=== PATIENT | male | born 1985 | race Caucasian/White ===

== ENCOUNTER 2023-03-11 20:33 | Emergency (ER) | payer MEDICAID, SELFPAY ==
--- NOTE | ~2023-03-11 | XR_ITS ---
EXAMINATION: XR FOREARM, RIGHT CLINICAL INFORMATION: Pain and swelling. Redness. COMPARISON: None available. TECHNIQUE: AP and lateral views of the right forearm were obtained. FINDINGS: Plate and screw fixation hardware of the mid to distal ulnar diaphysis. No acute fracture or cortical disruption. Appropriate alignment of the elbow and wrist. No elbow joint effusion. Mild soft tissue swelling at the dorsal aspect of the mid forearm. XR/XR forearm RT 2V IMPRESSION: Mild soft tissue swelling at the dorsal aspect of the mid forearm. No acute osseous abnormality.
[2023-03-11 20:47] VITALS: BP 171/118; PULSE 86; RESP 18; TEMP 36.7; O2SAT 98; BMI 21.9
--- NOTE | 2023-03-11 20:47 | ED_ITS ---
HPI - Extremity Problem General Chief complaint: Extremity Injury, Upper Stated complaint: Right forearm pain previous surgery 3 years ago Time Seen by Provider: 03/11/23 22:57 Source: patient, RN notes reviewed and old records reviewed Mode of arrival: ambulatory Limitations: no limitations History of Present Illness HPI Narrative: 37-year-old male presents for evaluation of pain to his right forearm. Patient reports a remote history approximately 4 years ago of surgery to his right arm He reports he believes this was done at [facility] Patient states at the time of surgical follow-up he was told that he could have the screws removed in the future if he desires Patient states that every few months he gets problems with his right forearm in the area of his scar He gets redness, swelling and pain to the area He states the last time this happened was 6 months ago while he was in [place] Patient reports for the last few days he has had a similar episode There are no open wounds or drainage from the area but he complains of pain, swelling to the right forearm Related Data Previous Rx's Medication Instructions Recorded cephalexin 500 mg capsule 500 mg PO QID #28 caps 03/11/23 Allergies Allergy/AdvReac Type Severity Reaction Status Date / Time No Known Allergies Allergy Unverified 04/19/20 16:35 Review of Systems Constitutional: Constitutional: Denies chills and Denies fever(s) Musculoskeletal: Comments: Pain to right forearm Integumentary/Breasts: Skin/Breast: Reports erythema PMFSH Social History Social History Advance Directives: No Advance Directives Information Provided: Yes Physical Exam Vital Signs: Vital Signs: Last Vital Signs Temp 97.9 F 03/11/23 22:51 Pulse 70 03/11/23 22:51 Resp 17 03/11/23 22:51 BP 162/96 H 03/11/23 22:51 Pulse Ox 97 03/11/23 22:51 O2 Del Method Room Air 03/11/23 22:51 BMI result Body Mass Index 21.9 Const: General: healthy appearing, comfortable, no acute distress, alert and awake Nutritional Appearance: well nourished Orientation/consciousness: patient oriented x3 Resp: Effort & Inspection: normal respiratory effort, able to speak in complete sentences and not labored Skin: Other: Patient has an approximately 6 cm area of erythema with some edema, no fluctuance or induration. The area is to the right dorsal forearm at the proximal surface of the patient's previous surgical scar. No streaking erythema General skin exam: elasticity normal Neuro: General: patient oriented x3 Cranial nerves: Yes Bilaterally intact EOM present Cognition (Neuro): normal cognition Course Course Course Narrative: RME - 37 yo male presents to the ER for evaluation of right forearm redness, pain, swelling that started 3 days ago. History of surgery on that same forearm 3 years ago and the redness is over the surgical scar. Has limited ROM due to the pain and vomited today due to the pain. NV intact distally, compartments soft and compressible - w/ area of erythema and warmth c/w cellulitis. Plan: x-ray forearm, abx Medical Decision Making Medical Decision Making MDM Narrative: 37-year-old male presents for evaluation of redness, pain and swelling to his right forearm in the area of a previous surgery. He appears to have a mild cellulitis. Patient is mildly hypertensive, otherwise vitals are stable, he is afebrile. I suspect he has a mild cellulitis. Will treat with cephalexin. I advised the patient to follow-up with his orthopedic surgeon if possible but given referral to our orthopedic team. X-ray was reviewed and does not show any obvious fracture or hardware failure Differential Diagnosis Differential Diagnoses: The differential diagnosis associated with the presentation includes Cellulitis Arthritis Chronic right arm pain Hardware failure Forearm fracture Independent Interpretation I performed an independent interpretation of an: Plain X-Ray Interpretation: Sequelae of previous surgical intervention. No obvious fracture Radiology Impression Discussion of test interpretation with radiology: I have reviewed the radiologist's reading. Radiologist Impression: Mild soft tissue swelling in the dorsal aspect of the mid forearm. No acute osseous abnormality Discharge Plan Discharge Clinical Impression: Cellulitis of forearm, right Patient Disposition: Home, Self-Care Instructions: Cellulitis (ED) Additional Instructions: Your x-ray shows normal a placement of the screws in your arm. It looks like you have a mild skin infection called cellulitis Take the cephalexin 4 times daily for the next 7 days You should try to follow with Orthopedics at [facility] since they did the procedure if you are interested in having the screws removed If you cannot get in touch them, you may follow-up with Dr. Fernando at the number provided Prescriptions: New cephalexin 500 mg capsule 500 mg PO QID Qty: 28 0RF Referrals: Edis Fernando MD [Physician] - (Chronic right forearm pain, previous surgeon)
[2023-03-11 22:51] VITALS: BP 162/96; PULSE 70; RESP 17; TEMP 36.6; O2SAT 97
[2023-03-11] MEDS: Acetaminophen 325 MG TABLET 650 MG PO (23:40)
== END 2023-03-11 23:47 | disposition home or self-care (01) ==
PROVIDERS: Emergency Provider Internal Medicine
DX: L03.113 Cellulitis of right upper limb (principal); R50.9 Fever, unspecified; M79.631 Pain in right forearm
CPT/HCPCS: 73090; 99283

== ENCOUNTER 2023-03-16 11:26 | Outpatient (REF) | payer MEDICAID, SELFPAY ==
[2023-03-16 19:05] LABS: CT PCR NOT DETECTED (Not Detect.); NG PCR NOT DETECTED (Not Detect.)
[2023-03-17 04:31] LABS: Syphilis Screen Nonreactive (Nonreactive)
[2023-03-17 04:43] LABS: HIV AB/AG Nonreactive (Nonreactive); HIV Num 1 0.05 S/CO (0.00-0.99); ~HepC Num1 0.11 S/CO (0.00-0.79); ~Hepatitis B Surface Antibody REACTIVE (Nonreactive); ~Hepatitis C Antibody Nonreactive (Nonreactive)
== END 2023-03-16 11:27 | disposition home or self-care (01) ==
LOC: HO.HHCL 11:26
PROVIDERS: Visit Provider General Practice
DX: Z11.4 Encounter for screening for human immunodeficiency virus [HIV] (principal); Z11.3 Encounter for screening for infections with a predominantly sexual mode of transmission
CPT/HCPCS: 0353U; 86706; 86780; 86803; 87389

== ENCOUNTER 2023-07-19 18:19 | Emergency (ER) | payer MEDICAID, SELFPAY ==
--- NOTE | ~2023-07-19 | CT_ITS ---
EXAMINATION: CT ABDOMEN AND PELVIS WITHOUT CONTRAST CLINICAL INFORMATION: Lateral abdominal pain. COMPARISON: None available. TECHNIQUE: Multidetector volumetric imaging was performed from the superior aspect of the liver through the pubic symphysis. Sagittal and coronal reformatted images were obtained on the technologist's workstation. This CT examination was performed using dose optimization techniques as appropriate, variously including the following: *Automated exposure control *Adjustment of mA and/or kV according to patient size (this includes techniques or standardized protocols for targeted exams where dose is matched to indication/reason for exam; i.e. extremities or head) *Use of iterative reconstruction technique DLP: 389 mGy-cm FINDINGS: LUNG BASES: The visualized lung bases are unremarkable. LIVER, GALLBLADDER, AND BILIARY TREE: The liver is normal in size, shape, and attenuation. No focal hepatic lesion or biliary ductal dilatation is present. The gallbladder is unremarkable with no evidence of radiopaque gallstones, gallbladder wall thickening, or obvious pericholecystic inflammatory changes. PANCREAS: Unremarkable. SPLEEN: Unremarkable. ADRENAL GLANDS: Unremarkable. KIDNEYS AND URETERS: The kidneys are normal in size, shape, and attenuation. No hydronephrosis, hydroureter, or calculi seen. No perinephric stranding. BLADDER: Unremarkable. GASTROINTESTINAL TRACT: Stomach, small bowel, and colon are normal in caliber. No bowel wall thickening or surrounding inflammatory changes. Appendix is normal. No intraperitoneal free fluid or free air. ABDOMINAL WALL: No significant hernia is appreciated. LYMPH NODES: Normal. VASCULAR: Unremarkable. PELVIC VISCERA: The prostate and seminal vesicles are unremarkable. OSSEOUS STRUCTURES: Unremarkable. Lumbar spine appears relatively well-preserved. No acute osseous findings. CT/CT abdomen pelvis wo IV con IMPRESSION: No acute intra-abdominal or intrapelvic abnormalities. Fleischner guidelines were followed.
[2023-07-19 18:59] VITALS: BP 175/100; PULSE 84; RESP 18; TEMP 37.2; O2SAT 98; BMI 23.8
[2023-07-19 19:15] LABS: MANUAL DIFF FLAG NO
[2023-07-19 19:20] LABS: Basophils Absolute Auto 0.1 X10*3/uL (0.0-0.2); Basophils Percent Auto 0.9 % (0-2); Eosinophils Absolute Auto 0.6 X10*3/uL (0.0-0.4); Eosinophils Percent Auto 6.5 % (0-4); Hematocrit 46.9 % (42.0-52.0); Hemoglobin 15.7 g/dl (14.0-18.0); Imm Gran Abs Auto 0.03 X10*3/uL (0.00-0.03); Imm Gran Pct Auto 0.3 % (0.0-0.4); Lymphocytes Absolute Auto 2.8 X10*3/uL (1.2-4.9); Lymphocytes Percent Auto 28.5 % (20-40); Mean Corpuscular HGB Conc 33.5 g/dl (31.0-36.0); Mean Corpuscular Hemoglobin 27.4 pg (27.0-33.0); Mean Corpuscular Volume 81.8 fL (80.0-98.0); Mean Platelet Volume 10.3 fL (9.4-12.4); Monocytes Absolute Auto 1.1 X10*3/uL (0.1-1.2); Monocytes Percent Auto 11.2 % (2-11); Neutrophils Absolute Auto 5.1 x10*3/uL (2.0-8.3); Neutrophils Percent Auto 52.6 % (45-73); Platelet Count 233 X10*3/uL (160-400); Red Blood Count 5.73 X10*6/uL (4.60-5.80); Red Cell Distribution Width 14.2 % (11.0-16.0); White Blood Count 9.8 X10*3/uL (4.8-10.8)
[2023-07-19 19:32] LABS: Alanine Aminotransferase 11 U/L (0-40); Albumin Level 4.6 g/dL (3.5-5.0); Alkaline Phosphatase 73 U/L (39-117); Anion Gap 15 (12-20); Aspartate Amino Transferase 16 U/L (5-37); Bilirubin Total 0.3 mg/dL (0.0-1.0); Blood Urea Nitrogen 15 mg/dL (9-16); Calcium 9.7 mg/dL (8.4-10.2); Carbon Dioxide 23 mmol/L (22-29); Chloride 105 mmol/L (96-108); Creatinine Clr Calc Pharmacy 98.8; Estimated Glomerular Filt Rate > 60; Glucose Random 107 mg/dL (60-115); Potassium 3.6 mmol/L (3.3-5.1); Sodium 139 mmol/L (135-145); Total Protein 7.7 g/dL (6.5-8.0)
[2023-07-19 19:43] LABS: Appearance Urine Clear; Color Urine Yellow; Glucose Urine UA Negative (Negative); Leukocyte Esterase Urine Negative (Negative); Nitrite Urine Negative (Negative); Specific Gravity - Urine >= 1.030 (1.005-1.025); UMIC TRIGGER UACC YES; Urine Blood Trace (Negative); Urine Ketones Trace mg/dL (Negative); Urine Protein Negative (Neg-Trace)
[2023-07-19 19:45] LABS: Bacteria Urine None Seen (None Seen); Hyaline Casts Urine 0-2 /LPF (0-2); Squamous Epithelial Cell Urine 0-2 /HPF (0-2); WBC Urine 0-5 /HPF (0-5)
[2023-07-19 20:24] VITALS: BP 155/89; PULSE 75; RESP 20; TEMP 37.2; O2SAT 98
--- NOTE | 2023-07-19 22:35 | ED.ABDPAIN ---
HPI - Abdominal Pain General Chief Complaint: Abdominal Pain Stated Complaint: GI gas pains Time Seen by Provider: 07/19/23 22:31 Source: patient, RN notes reviewed and old records reviewed Mode of arrival: ambulatory History of Present Illness HPI narrative: 37-year-old male with no significant past medical history presenting to the ED complaining of suprapubic/lower abdominal pain x3 weeks worsening over the past 2 days with intermittent bilateral side pain. Also reports sexual partner recently tested positive for gonorrhea and chlamydia. Patient denies dysuria/hematuria, penile discharge, testicular/scrotal pain or swelling/lesions, nausea/vomiting, diarrhea/constipation, flank pain. MD elicited complaint: abdominal pain Related Data Previous Rx's Medication Instructions Recorded cephalexin 500 mg capsule 500 mg PO QID #28 caps 03/11/23 doxycycline hyclate 100 mg tablet 100 mg PO BID 7 days #14 tabs 07/19/23 Allergies Allergy/AdvReac Type Severity Reaction Status Date / Time No Known Allergies Allergy Verified 07/19/23 19:06 Review of Systems Review of Systems Constitutional: No Fever, No Chills ENT/Mouth: No Ear Pain, No Nasal Congestion, No sore throat, No Rhinorrhea, No Swallowing Difficulty Cardiovascular: No Chest Pain, No SOB Respiratory: No Cough, No Sputum, No Wheezing Gastrointestinal: No Nausea, No Vomiting, No Diarrhea, No Constipation, +Abdominal pain Genitourinary: No Dysuria, No Urinary Frequency, No Hematuria, No Urinary Incontinence/retention, No Flank Pain Musculoskeletal: No joint pain, No Myalgias, No Joint Swelling Skin: No Skin Lesions, No rash Neuro: No Weakness Yes all other systems are reviewed and are negative Constitutional: Reports as per [facility] Past Medical History Attestation statement: The following information was validated with the patient. Source: old records reviewed Social History Social History Advance Directives: No Advance Directives Information Provided: No Physical Exam ED Vital Signs: Vital Signs - 24 hr 07/19/23 18:59 07/19/23 20:24 07/19/23 23:49 Temperature 99.0 F 98.9 F Pulse Rate 84 75 69 Respiratory Rate 18 20 16 Blood Pressure 175/100 H 155/89 H 137/89 Pulse Oximetry 98 98 98 Oxygen Delivery Method Room Air Room Air Room Air BMI result Body Mass Index 23.8 Const General: cooperative, healthy appearing and no acute distress Orientation/consciousness: patient oriented x3 Limitations: no limitations HENMT Head: Yes normal to inspection and Yes atraumatic Ears: hearing grossly normal bilaterally General nose exam: Normal external nose present Face and sinus: Yes normal facial exam Eyes General: appearance normal, both eyes and all related structures EOM: EOMs intact bilaterally Neck Neck: Yes normal visual inspection and Yes no meningeal signs Resp Effort & Inspection: normal respiratory effort and no respiratory distress Auscultation: clear to auscultation bilaterally Cardio Rate: regular rate Heart sounds: S1 normal heart sound present and S2 normal heart sound present GI Inspection: Yes normal to inspection Palpation (GI): Soft to palpation, Tenderness to palpation present (GI) (bilateral lower abdominal) suprapubicly, no guarding and not rigid General: Yes no CVA tenderness Back/Spine/Pelvis Back: no CVA tenderness Skin Rashes: no rashes Wounds: no wounds Neuro General: patient oriented x3, tone normal and no meningeal signs Cranial nerves: Yes CN's II-XII intact bilaterally Gait exam (Neuro): Normal gait present Extrem General: Yes normal to inspection Course Course Course Narrative: -5--labs reassuring. UA with RBC/not infected >> reason agreeable to empiric treatment of gonorrhea and chlamydia today in the ED, will receive IM Rocephin and p.o. doxycycline CT abdomen pelvis wo IV con IMPRESSION: No acute intra-abdominal or intrapelvic abnormalities. Fleischner guidelines were followed. >Results discussed with patient including worrisome signs and symptoms and strict return precautions, and when to return to the emergency department. They verbalized understanding and feel safe for discharge at this time. Medical Decision Making Medical Decision Making [facility] Narrative: 37-year-old male with no significant past medical history presenting to the ED complaining of suprapubic/lower abdominal pain x3 weeks worsening over the past 2 days with intermittent bilateral side pain. Also reports sexual partner recently tested positive for gonorrhea and chlamydia. On exam vital signs stable, NAD, nontoxic appearing, abdomen soft with suprapubic/lower abdominal tenderness, no CVAT. exam deferred. Concern for colitis vs UTI vs ?pyelo vs STI. Lower suspicion for testicular torsion/epididymitis/orchitis Plan: Labs, UA, GC/chlamydia testing, CT AP Please refer to course for remaining clinical decision making, interpretation of labs/imaging results, and discussions with consultants and/or family members. Differential Diagnosis Differential Diagnoses: The differential diagnosis associated with the presentation includes As above Admission/Observation Consideration of admission/observation: Escalation of care including admission/observation considered Lab Data MDM Lab Attestation statement: I reviewed the patient's lab results. 07/19/23 19:10 07/19/23 19:10 Labs: Lab Results 07/19/23 07/19/23 Range/Units 19:10 19:24 WBC 9.8 (4.8-10.8) X10*3/uL RBC 5.73 (4.60-5.80) X10*6/uL Hgb 15.7 (14.0-18.0) g/dl Hct 46.9 (42.0-52.0) % MCV 81.8 (80.0-98.0) fL MCH 27.4 (27.0-33.0) pg MCHC 33.5 (31.0-36.0) g/dl RDW 14.2 (11.0-16.0) % Plt Count 233 (160-400) X10*3/uL MPV 10.3 (9.4-12.4) fL Immature Gran % (Auto) 0.3 (0.0-0.4) % Neut % (Auto) 52.6 (45-73) % Lymph % (Auto) 28.5 (20-40) % Brooks % (Auto) 11.2 H (2-11) % Eos % (Auto) 6.5 H (0-4) % Baso % (Auto) 0.9 (0-2) % Lymph # (Auto) 2.8 (1.2-4.9) X10*3/uL Brooks # (Auto) 1.1 (0.1-1.2) X10*3/uL Eos # (Auto) 0.6 H (0.0-0.4) X10*3/uL Baso # (Auto) 0.1 (0.0-0.2) X10*3/uL Abs Immat Gran (auto) 0.03 (0.00-0.03) X10*3/uL Absolute Neuts (auto) 5.1 (2.0-8.3) x10*3/uL Absolute Nucleated RBC 0.000 (0.0-0.012) X10*3/uL Nucleated RBC % (auto) 0.0 (0.0-0.2) /100WBC Sodium 139 (135-145) mmol/L Potassium 3.6 (3.3-5.1) mmol/L Chloride 105 (96-108) mmol/L Carbon Dioxide 23 (22-29) mmol/L Anion Gap 15 (12-20) BUN 15 (9-16) mg/dL Creatinine 0.89 (0.5-1.4) mg/dL Estim Creat Clear Calc 98.8 Estimated GFR > 60 Random Glucose 107 (60-115) mg/dL Calcium 9.7 (8.4-10.2) mg/dL Total Bilirubin 0.3 (0.0-1.0) mg/dL AST 16 (5-37) U/L ALT 11 (0-40) U/L Alkaline Phosphatase 73 (39-117) U/L Total Protein 7.7 (6.5-8.0) g/dL Albumin 4.6 (3.5-5.0) g/dL Lipase 25 (8-78) U/L Urine Color Yellow Urine Appearance Clear Urine pH 7.0 (5.0-9.0) Ur Specific Vidal >= 1.030 H (1.005-1.025) Urine Protein Negative (Neg-Trace) mg/dL Urine Glucose (UA) Negative (Negative) mg/dL Urine Ketones Trace (Negative) mg/dL Urine Blood Trace H (Negative) Urine Nitrite Negative (Negative) Ur Leukocyte Esterase Negative (Negative) Urine RBC 11-20 H (0-2) /HPF Urine WBC 0-5 (0-5) /HPF Ur Squamous Epith Cells 0-2 (0-2) /HPF Urine Bacteria None Seen (None Seen) Hyaline Casts 0-2 (0-2) /LPF Independent Interpretation I performed an independent interpretation of an: CT Scan Radiology Impression Discussion of test interpretation with radiology: I have reviewed the radiologist's reading. External Record Review External record reviewed: Inpatient record, Office record, Outpatient record, Prior outpatient labs, Prior outpatient radiology, Primary care record and Outside ED record Tests considered The following testing was considered but not selected: As above Prescription Management I considered prescription management with: Pain Medication and Antibiotic Medications Administered Discontinued Medications Generic Name Dose Route Start Last Admin Trade Name Angela PRN Reason Stop Dose Admin Ceftriaxone Sodium 500 mg/ 0 mg 07/19/23 23:19 07/19/23 23:43 Lidocaine HCl 1 ml IM 07/19/23 23:20 1 kit ONCE ONE Administration Doxycycline Monohydrate 100 mg 07/19/23 23:19 07/19/23 23:44 Doxycycline Monohydrate 100 Mg Capsule PO 07/19/23 23:20 100 mg ONCE ONE Administration Discharge Plan Discharge Clinical Impression: Possible exposure to STI Patient Disposition: Still a Patient Prescriptions: New doxycycline hyclate 100 mg tablet 100 mg PO BID 7 Days Qty: 14 0RF No Action cephalexin 500 mg capsule 500 mg PO QID Qty: 28 0RF
[2023-07-19 23:05] LABS: Lipase 25 U/L (8-78)
[2023-07-19] MEDS: cefTRIAXone sodium 500 MG, Lidocaine HCl 1 % MPF 1 ML IM (23:43)
[2023-07-19] MEDS: Doxycycline Monohydrate 100 MG CAPSULE PO (23:44)
[2023-07-19 23:49] VITALS: BP 137/89; PULSE 69; RESP 16; O2SAT 98
--- NOTE | 2023-07-20 00:36 | PC.NURSE ---
pt medicated per oct. vss. resp even and unlabored. pt verbalizes understanding d/c instructions. ambulatory with steady gait.
[2023-07-20 05:55] LABS: CT PCR NOT DETECTED (Not Detect.); NG PCR NOT DETECTED (Not Detect.)
== END 2023-07-20 00:37 | disposition home or self-care (01) ==
PROVIDERS: Physician Assistant; Emergency Provider Emergency Medicine Emergency Medical Services
DX: R10.30 Lower abdominal pain, unspecified (principal); R14.1 Gas pain; Z20.2 Contact with and (suspected) exposure to infections with a predominantly sexual mode of transmission; Z72.89 Other problems related to lifestyle
CPT/HCPCS: 0353U; 36415; 74176; 80053; 81001; 83690; 85025; 99284; J0696

== ENCOUNTER 2023-07-24 11:40 | Outpatient (REF) | payer MEDICAID, SELFPAY ==
[2023-07-24 13:53] LABS: Cholesterol 144 mg/dL (<200); HDL Cholesterol 45 mg/dL (>40); LDL Cholesterol Calculated 79 mg/dL (<100); Triglycerides 103 mg/dL (<150)
[2023-07-24 14:11] LABS: Reflex LDLD? No
[2023-07-24 14:12] LABS: Anion Gap 14 (12-20)
[2023-07-24 14:15] LABS: Blood Urea Nitrogen 15 mg/dL (9-16); Calcium 9.5 mg/dL (8.4-10.2); Carbon Dioxide 25 mmol/L (22-29); Chloride 105 mmol/L (96-108); Estimated Glomerular Filt Rate > 60; Glucose Random 90 mg/dL (60-115); Potassium 4.8 mmol/L (3.3-5.1); Sodium 139 mmol/L (135-145)
[2023-07-24 14:18] LABS: TSH reflex Free T4 0.55 uIU/mL (0.32-4.0)
== END 2023-07-24 11:41 | disposition home or self-care (01) ==
LOC: HO.HHCL 11:40
PROVIDERS: Visit Provider Internal Medicine
DX: R03.0 Elevated blood-pressure reading, without diagnosis of hypertension (principal)
CPT/HCPCS: 36415; 80048; 80061; 84443

== ENCOUNTER 2023-09-01 11:11 | Outpatient (REF) | payer MEDICAID, SELFPAY ==
[2023-09-01 11:47] LABS: Appearance Urine Clear; Color Urine Yellow; Glucose Urine UA Negative (Negative); Leukocyte Esterase Urine Negative (Negative); Nitrite Urine Negative (Negative); Specific Gravity - Urine 1.025 (1.005-1.025); UMIC TRIGGER UACC YES; Urine Blood Trace (Negative); Urine Ketones Negative (Negative); Urine Protein Negative (Neg-Trace)
[2023-09-01 12:08] LABS: Bacteria Urine None Seen (None Seen); Hyaline Casts Urine 0-2 /LPF (0-2); RBC Urine 0-2 /HPF (0-2); Squamous Epithelial Cell Urine 0-2 /HPF (0-2); WBC Urine 0-5 /HPF (0-5)
[2023-09-01 16:56] LABS: CT PCR NOT DETECTED (Not Detect.); NG PCR NOT DETECTED (Not Detect.)
== END 2023-09-01 11:12 | disposition home or self-care (01) ==
LOC: HO.HHCL 11:11
PROVIDERS: Visit Provider General Practice
DX: R31.0 Gross hematuria (principal)
CPT/HCPCS: 0353U; 36415; 81001

== ENCOUNTER 2024-10-30 12:08 | Emergency (ER) | payer MEDICAID, SELFPAY ==
[2024-10-30 12:10] VITALS: BP 143/84; PULSE 78; RESP 18; TEMP 37; O2SAT 100; BMI 23.3
--- NOTE | 2024-10-30 12:22 | ED_ITS ---
HPI - General Adult General Chief complaint: Back Pain/Injury Stated complaint: Back pain Time Seen by Provider: 10/30/24 12:22 Source: patient Mode of arrival: ambulatory Limitations: no limitations History of Present Illness ED Provider: Coral Vicente PA-C HPI narrative: Patient is a 38 year old assigned male at with a history of sciatica presenting to the emergency department today with low back pain. Patient states that last night he was laying on his left side when he coughed, felt something slip in his back, and has had pain that radiates from his low back into his legs ever since. Patient denies any dizziness, lightheadedness, abdominal pain, nausea, vomiting, fever, chills, blurry vision, double vision, loss of vision, chest pain, difficulty breathing, shortness of breath, night sweats, pain with urination, increased urinary frequency, increased urinary urgency, blood in his urine or stool, syncope or a near syncopal episode, recent trauma or falls, bowel incontinence, bladder incontinence, or any other complaints at this time. Relieving factors: none Treatments prior to arrival: none Related Data Previous Rx's ?Medication ?Instructions ?Recorded cephalexin 500 mg capsule 500 mg PO QID #28 caps 03/11/23 doxycycline hyclate 100 mg tablet 100 mg PO BID 7 days #14 tabs 07/19/23 cyclobenzaprine 5 mg tablet 5 mg PO TID PRN muscle spasm 7 10/30/24 days #21 tabs prednisone 20 mg tablet 20 mg PO DAILY 7 days #7 tabs 10/30/24 Allergies Allergy/AdvReac Type Severity Reaction Status Date / Time No Known Allergies Allergy Verified 10/30/24 12:13 Review of Systems Constitutional: Constitutional: Reports no additional constitutional complaints, Denies chills, Denies fever(s) and Denies night sweats Eyes: Eyes: Reports no additional eye complaints, Denies blurry vision, Denies change in vision, Denies diplopia, Denies eye discharge, Denies loss of vision and Denies eye pain ENT: Denies dizziness Cardiovascular: Cardiovascular: Reports no additional cardiovascular complaints, Denies chest pain, Denies lightheadedness, Denies Loss of Consciousness and Denies dyspnea Respiratory: Respiratory: Reports no additional respiratory complaints and Denies dyspnea Gastrointestinal: Gastrointestinal: Reports no additional gastrointestinal complaints, Denies abdominal pain, Denies melena, Denies hematochezia, Denies change in bowel habits and Denies change in stool character Genitourinary: Genitourinary: Reports no additional male genitourinary complaints, Denies hematuria, Denies oliguria, Denies difficulty urinating, Denies dysuria, Denies urinary frequency, Denies urinary hesitancy, Denies urinary incontinence and Denies urinary urgency Musculoskeletal: Musculoskeletal: Reports no additional musculoskeletal complaints, Reports back pain, Denies numbness and Denies tingling Neurologic: Denies dizziness, Denies loss of vision, Denies numbness and Denies tingling Psychiatric: Psychiatric: Reports no additional psychiatric complaints Endocrine: Endocrine: Reports no additional endocrine complaints Hematologic/Lymphatic: Hematologic/Lymphatic: Reports no additional hematologic/lymphatic complaints Allergic/Immunologic: Allergic/Immunologic: Reports no additional allergic/immunologic complaints PMFSH Past Medical History Attestation statement: The following information was validated with the patient. Source: old records reviewed and nursing notes reviewed Social History Social History Advance Directives: No Advance Directives Information Provided: No Do you have a plan to hurt others: No Plan Physical Exam ED Vital Signs: Vital Signs - 24 hr 10/30/24 12:10 10/30/24 12:58 Temperature 98.6 F 98.6 F Pulse Rate 78 78 Respiratory Rate 18 18 Blood Pressure 143/84 H 143/84 H Pulse Oximetry 100 100 Oxygen Delivery Method Room Air Room Air BMI result Body Mass Index 23.3 Const General: cooperative, no acute distress, alert and awake Nutritional Appearance: well nourished Orientation/consciousness: patient oriented x3 Limitations: no limitations [facility] Head: Yes normal to inspection and Yes atraumatic Ears: hearing grossly normal bilaterally and external ears normal General nose exam: Normal external nose present, no nasal discharge noted and no epistaxis Face and sinus: Yes normal facial exam, No abrasion and No laceration Mouth: Normal oral and palatal mucosa present, no drooling and no muffled voice Eyes General: appearance normal, both eyes and all related structures Periorbital: periorbital findings normal Eyelids: Yes eyelids normal Conjunctivae: conjunctivae normal Pupils: Equal, round and reactive pupils present EOM: EOMs intact bilaterally Neck Neck: Yes normal visual inspection, Yes full ROM and Yes no lymphadenopathy Chest Chest palpation & inspection: normal inspection of the chest Resp Effort & Inspection: normal respiratory effort and able to speak in complete sentences GI Inspection: Yes normal to inspection General: Yes no CVA tenderness Back/Spine/Pelvis Back: no CVA tenderness Cervical Spine: cervical ROM normal Thoracic/Lumbar Spine: thoraco-lumbar ROM normal Neuro General: patient oriented x3, moves all extremities and CN's II-XI intact bilaterally Cranial nerves: Yes Equal, round and reactive pupils present Cognition (Neuro): normal cognition Extrem General: Yes normal to inspection, Yes full ROM and Yes capillary refill normal Psych Appearance: grossly normal Mental Status: mental status grossly normal Affect: normal affect Attitude: cooperative Thought process: Normal thought process present Thought content: Normal thought content present Insight: Good insight present (Psych) Medications Administered Discontinued Medications Generic Name Dose Route Start Last Admin Trade Name Freq PRN Reason Stop Dose Admin Diazepam 2 mg 10/30/24 12:30 10/30/24 12:51 Diazepam 2 Mg Tablet PO 10/30/24 12:31 2 mg ONCE ONE Administration Methylprednisolone Sodium Succinate 60 mg 10/30/24 12:30 10/30/24 12:51 Methylprednisolone Sod Succ 125 Mg/2 Ml Vial IM 10/30/24 12:31 60 mg ONCE ONE Administration Medical Decision Making Medical Decision Making MDM Narrative: Patient is a 38 year old assigned male at with a history of sciatica presenting to the emergency department today with low back pain. Patient states that last night he was laying on his left side when he coughed, felt something slip in his back, and has had pain that radiates from his low back into his legs ever since. Patient's physical exam was unremarkable. Patient's clinical presentation is most consistent with lumbar radiuclopathy. I explained my physical exam findings to the patient. I answered all questions asked by the patient. I stressed the importance of the patient taking his medication as directed (either prescribed or as the over the counter packaging recommends). I stressed the importance of the patient following up with his primary care provider and a social media marketing specialist. I stressed the importance of the patient returning to the emergency department immediately if his symptoms were to worsen or if he were to develop any dizziness, shortness of breath, difficulty breathing, chest pain, blurry vision, loss of vision, nausea, vomiting, abdominal pain, fever, chills, back pain, or any other complaints. Patient verbalized agreement and understanding with this treatment plan and discharge. Differential Diagnosis Differential Diagnoses: The differential diagnosis associated with the presen tation includes Lumbar radiculopathy Sciatica Slipped disc Bulging disc Admission/Observation Consideration of admission/observation: Escalation of care including admission/observation considered Patient would have been admitted to the hospital had his clinical presentation warranted hospital admission. Tests considered The following testing was considered but not selected: I considered obtaining a CT scan of the lumbar spine however, the patient's current clinical presentation and mechanism of injury did not warrant this. I discussed this with the patient who verbalized understanding and agreement. Prescription Management I considered prescription management with: Pain Medication (patient prescribed pain medication.) Discharge Plan Discharge Clinical Impression: Lumbar radiculopathy Patient Disposition: Home, Self-Care Instructions: Lumbar Radiculopathy (ED), Lower Back Exercises (ED) Additional Instructions: Your clinical presentation is most consistent with lumbar radiculopathy - likely secondary to a slipped disc. Follow up with your primary care provider and the spine team. Return to the emergency department immediately if your symptoms worsen or if you develop any numbness, tingling, dizziness, shortness of breath, difficulty breathing, chest pain, blurry vision, loss of vision, nausea, vomiting, abdominal pain, fever, chills, back pain, or any other complaints. Please see the information below about our Patient Portal. If you are not yet enrolled in the [facility] Patient Portal, you will receive an enrollment email invitation following your visit to any [facility] care setting. You may also self-enroll in the Patient Portal by visiting our website: [email or web address] The following information is required to access the Patient Portal: - Your [facility] Medical Record Number - Your personal home email address (must match what is in your electronic medical record, Registration staff can assist with this) - Name - Date of Capabilities of the Patient Portal: - Message some providers - View upcoming appointments - Access your health summary, medical history, and visit history - View current conditions and allergies - View procedure and lab results - View your medications, including guidelines, side effects, and precautions - Complete pre-appointment questionnaires requested by your provider - Ready summary reports of your office visits and procedures To access the Patient Portal Mobile [employer], follow these directions: - Search [employer] in the Damaris Store or Google Play Store - Download the [employer]aris - Search for [facility] - Enter your login/password Prescriptions: New prednisone 20 mg tablet 20 mg PO DAILY 7 Days Qty: 7 0RF cyclobenzaprine 5 mg tablet 5 mg PO TID PRN (Reason: muscle spasm) 7 Days Qty: 21 0RF No Action doxycycline hyclate 100 mg tablet 100 mg PO BID 7 Days Qty: 14 0RF cephalexin 500 mg capsule 500 mg PO QID Qty: 28 0RF Referrals: [facility] [Provider Group] (Call to establish and follow up with the spine team. ) Center,[facility] [Primary Care Provider] - Interventions: ED Discharge Assessment Last Done: 10/30/24 12:58 Discharge Date/Time: 10/30/24 13:00 Print Language: Botswanan
--- OUTSIDE RECORDS SUMMARY | 2024-10-30 12:28 | XMS_ITS | Encounter Summary ---
Author Organization [employer] Address [address] [place] [address] Care Team Providers Care Cloud Consultant Name Role Phone Samantha Phoenix MD Primary Care Provider [phone] Encounter Details Date Type Department Care Team ([facility] st Contact Info) Description 10/14/2024 Population Health Risk Score [facility] ([facility]) Department [address] [id number] Provider, Population Health Generic Social History Tobacco Use Types Packs/Day Years Used Date Smoking Tobacco: Every Day Cigarettes Passive Smoke Exposure: Current Smokeless Tobacco: Current Depression Answer Date Recorded Patient Health Questionnaire-9 Score 17 04/02/2023 Housing Stability Answer Date Recorded What is your housing situation today? I have quinn silva 05/20/[address] you li ve. Do you have problems with any of the following? None of the above 05/20/2023 Food Insecurity Answer Date Recorded Within the past 12 months, y ou worried that your food would run out before you got money to buy more: Never True 05/20/2023 Within the past 12 months,th e food you bought just didn't last and you didn't have enough money to get more: Never True Transportation Answer Date Recorded In the past 12 months, has l ack of transportation kept you from medical appts, meetings, work or from getting things needed for daily living? Yes, it has kept me from medical appointments or getting medications. 05/11/2023 Utilities Answer Date Recorded In the past 12 months, has t he electric, gas, oil or water company threatened to shut off services in your home? No 05/20/2023 Depression Answer Date Recorded Patient Health Questionnaire-2 Score 5 04/02/2023 Sex and Gender Information Value Date Recorded Sex Assigned at Male 06/02/2022 10:14 AM EDT Legal Sex Male 10:14 AM EDT Gender Identity Male 06/02/2022 10:14 AM EDT Sexual Orientation Choose not to disclose 2022 2:39 PM EDT documented as of this encounter Plan of Treatment Not on file documented as of this encounter Visit Diagnoses Not on filedocumented in this encounter Additional Health Concerns Assessment Noted Time PHQ-9 Depression Total Score: 17 023 4:23 PM EDT documented as of this encounter Care Teams Cloud Consultant Relationship Specialty Start Date End Date Samantha Phoenix MD [address] [place] [address] PCP - General Family Medicine 07/18/20 documented as of this encounter
--- OUTSIDE RECORDS SUMMARY | 2024-10-30 12:28 | XMS_ITS | Clinical Summary ---
Author Organization [employer] Address [address] [facility] 7[address] [place] [address] Care Team Providers Care Humidifier Maintenance Worker Name Role Phone Samantha Phoenix MD Primary Care Provider [phone] Allergies No known active allergies Medications * This document contains information received from the source organization and may not represent a complete record from that organization. Blood Pressure kit 1 each 2 times daily. 1 kit 01/06/2024 01/06/20 25 Active amLODIPine (Norvasc) 5 MG tabletIndicatio ns:Elevated blood pressure reading Take 1 tablet (5 mg) by mouth Once per day. 90 tablet 3 09/14/2024 09/14/19 26 Active baclofen (Lioresal) 20 MG tablet Take 1 tablet (20 mg) by mouth if needed in the morning, at noon, and at bedtime for muscle spasms for up to 10 days. 30 tablet 09/14/2024 Active celecoxib (CeleBREX) 200 MG capsule Take 1 capsule (200 mg) by mouth 2 times daily for 20 days. 40 capsule 09/14/2024 10/05/19 25 Active Problems Problem Noted Date Diagnosed Date Rectal bleeding 09/01/2023 Assessment & Plan (09/01/2023 2:06 PM EST): Plan for colonoscopy Trial carafate for epigastric pain/gassiness Avoid processed foods/carbonated drinks as much as possible Chlamydia contact 07/24/2023 Assessment & Plan (07/24/2023 12:13 PM EST): Currently on 3rd day of treatment Complete antibiotic x 7 days and FU w PCP in 1 m Counseled to use condoms at all times, samples given today at OV. Discuss w/ pt about PrEP but he declines at this time Gross hematuria 07/24/2023 Assessment & Plan (09/01/2023 2:04 PM EST): Repeat UA with trace blood, not jeanie blood Will await GC results Assessment & Plan (07/24/2023 11:29 AM EST): Most likely related to chlamydia Repeat UA w PCP in 1 m Abdominal bloating 07/24/2023 Assessment & Plan (07/24/2023 11:28 AM EST): Abd bloating Most likely related to high carb diet at pt is trying to put on wt Counseled him to go on carb free diet for 1 wk and keep Sx diary Use simethicone tablets prn and check labs FU w/ PCP in 4 wks Elevated blood pressure reading 05/20/2023 Assessment & Plan (05/20/2023 7:36 PM EDT): New onset HTN, see above Essential hypertension 05/20/2023 Assessment & Plan (09/01/2023 2:04 PM EST): Amlodipine re-ordered, to start at 5mg daily Assessment & Plan (05/20/2023 7:36 PM EDT): New onset. Will start amlodipine 2.5mg and fu BP with RN in 3-4w. Counseled re low salt diet/increase moderate physical activity. Check home BP BIW and prn CP/BENITEZ/JESSICA Counseled to quit smoking, not interested at this time. MDD (major depressive disorder) 03/26/2023 Assessment & Plan (04/02/2023 4:44 PM EDT): Patient with symptoms of hopelessness, anhedonia, difficulty concentrating, feelings of guilt, restlessness indicating a moderate/severe impact on social and occupational functioning. Symptoms occur nearly everyday and have been present since July 2022. Symptoms presented in the context of instable housing situation and difficult interpersonal relationships. Patient will benefit from receiving OP individual therapy and incorporating physical activity into daily routine. At this time Lj Broussard meets criteria for Visit Diagnoses: Problem List Items Addressed This Visit Other MDD (major depressive disorder) Patient ready to address current needs Yes Strengths include resilience to overcome difficulties in life PLAN: 1. Follow up with [facility]: Not recommended for follow-up 2. Patient goal is to be more active and motivated 3. Behavioral Recommendations a. Referral for OP individual therapy in placed with A. b. Practive mindfulness techniques to decrease depressive symptoms c. Set-up boundaries with family and friends. Assessment & Plan (03/26/2023 1:34 PM EDT): Assessment: Patient with depressed mood (feeling hopeless, diminished interest in activities, insomnia, feeling of worthlessness and inability to concentrate). Symptoms occur nearly everyday and have been present for the last 9 months. Symptoms presented in the context of ending a long-term romantic relationship and moving to his sister's house. Patient will benefit from receiving OP individual therapy. Follow-up BE requested by patient; appointment made for 03/31/23. At this time Lj Broussard meets criteria for Visit Diagnoses: Problem List Items Addressed This Visit Other MDD (major depressive disorder) Patient ready to address current needs Yes Strengths include resilience to overcome difficulties in life PLAN: 1. Follow up with [facility]: Recommended for follow-up: Patient requested a second BE while waiting for OP referral 2. Patient goal is feel less depressed 3. Behavioral Recommendations a. OP referral with agency b. Practice mindfulness techniques to decrease depressive symptoms c. Continue to rely on positive and healthy relationships Screening examination for sexually transmitted d isease 03/16/2023 Closed fracture of right upp er extremity with delayed healing 03/16/2023 Anxiety 03/16/2023 Assessment & Plan (03/16/2023 1:48 PM EDT): Referral to [facility], wants to talk to someone to help maintain his sobriety Tobacco dependence syndrome 08/03/1959 Assessment & Plan (03/16/2023 1:44 PM EDT): Cutting back on his own Down to 6-7 cigarettes and one blunt per day Resolved Problems Problem Noted Date Diagnosed Date Resolved Date Disease due to severe acute respiratory syndrome coronavirus 2 (SARS-CoV-2) 09/06/202207/04 Overview (01/02/2023): Problem added by Discern Expert Encounters Date Type Department Care Team Description 10/14/2024 Population Health Risk Score [facility] [address] [id number] Provider, Population Health Generic 09/14/2024 3:00 PM EST Office Visit [facility] [address] [place], [place] [phone] Name, MD Rayo Sciatica of right side (Primary Dx); Essential hypertension; Elevated blood pressure reading 08/17/2024 Telephone [facility] [address] [place] [address] Paula Donald MA recall from Last 3 Months Immunizations Name Administration Dates Next Due DTP 09/20/1991,05/27/1991,01/11/1986 Hep B, adult 04/16/2000,04/06/1998,11/17/1997 Hib (HbOC) 04/28/2001 IPV 11/17/1997, 2,05/27/1991,1985 Influenza injectable quadriv alent preservative free 07/13/2019 Influenza, IIV3, injectable 06/03/2013 Influenza, Split (incl. viviana fied surface antigen) 05/12/2012 MMR 11/17/1997,05/27/1991 TD (adult), 2 Lf tetanus tox oid, preservative free, adsorbed 05/08/2008,11/17/1997 Tdap 06/19/2019,03/17/2012 Varicella 05/20/2000,04/16/2000 Social History Tobacco Use Types Packs/Day Years Used Date Smoking Tobacco: Every Day Cigarettes Passive Smoke Exposure: Current Smokeless Tobacco: Current Tobacco Cessation:Ready to Q uit: Not Asked; Counseling Given: Not Answered Depression Answer Date Recorded Patient Health Questionnaire-9 [...] not to disclose 2022 2:39 PM EDT Last Filed Vital Signs Vital Sign Reading Time Taken Comments Blood Pressure 148/102 09/14/2024 2:31 PM EST Pulse 75 09/14/2024 2:31 PM EST Temperature 37.1 ??C (98.7 ??F) 09/14/2024 2:31 PM ES T Respiratory Rate 16 09/14/2024 2:31 PM EST Oxygen Saturation 97% 01/06/2024 2:12 PM EDT RA Inhaled Oxygen Concentration - - Weight 61.8 kg (136 lb 3.2 oz) 09/14/2024 2:31 P M EST Height 165.1 cm (5' 5 ) 09/14/2024 2:31 PM EST Body Mass Index 22.66 09/14/2024 2:31 PM EST Plan of Treatment Health Maintenance Due Date Last Done Comments Alcohol/Substance Use Screening 1997 Family Planning (PISQ) 2000 Pneumococcal Vaccine: Pediatrics (0 to 5 Years) and At-Risk Patients (6 to 49) Years) (1 of 2 - PCV) 2004 Depression Monitoring (PHQ-9) 10/01/2023 04/02/2023, 04/02/2023 SDOH Screening 03/16/2024 03/16/2023 Depression Screening 04/02/2024 04/02/2023, 04/02/20 23 COVID-19 Vaccine ( season) 2024 10/21/2021, 01/14/2021, 12/17/2020 Influenza Vaccine (#1) 2024 3, 07/13/2019, 06/03/2013, Additional history exists Tobacco Screening 09/14/2025 09/14/2024 Lipid Panel 07/24/2028 07/24/2023 DTaP/Tdap/Td Vaccines (7 - Td or Tdap) 06/19/2029 06/19/2019, 03/17/2012, 05/08/2008, Additional history exists Zoster Vaccines (1 of 2) 11/03/2035 RSV Patients and Patients Aged 60 years or older (1 - 1-dose 75+ series) 2060 IPV Vaccines Completed 11/17/1997, 09/03, 05/27/1991, Additional history exists Hepatitis B Vaccines Completed 04/16/2000, 04/06/1998, 11/17/1997 HIB Vaccines Aged Out 04/28/2001 No longer eligi ble based on patient's age to complete this topic HIV Screening Completed 03/16/2023, 10/02, 10/22/2021 Hepatitis C Screening Completed 03/16/2023 HPV Vaccines Aged Out No longer eligi ble based on patient's age to complete this topic Hepatitis A Vaccines Aged Out No long er eligible based on patient's age to complete this topic Meningococcal Vaccine Aged Out No elmo shantelle eligible based on patient's age to complete this topic RSV under 20 months Aged Out No longe r eligible based on patient's age to complete this topic Rotavirus Vaccines Aged Out No longer eligible based on patient's age to complete this topic Procedures Procedure Name Priority Date/Time Associated Diagnosis Comments LIPID PANEL WITH REFLEX TO DIRECT LDL Routine 07/24/2023 11:42 AM EST Elevated blood pressure reading HEPATITIS C ANTIBODY Routine 03/16/2023 11:33 AM EDT Screening examination for sexually transmitted disease HIV ANTIBODY/ANTIGEN ([facility]) Routine 03/16/2023 11:33 AM EDT from Last 3 Months or Most Recently Relevant to Health Maintenance Results * Lipid Panel with Reflex to Direct LDL (07/24/2023 11:42 AM EST) Triglycerides 103 <150 mg/dL [facility] Comment:Desirable Triglyceri de: less than 150 mg/dLBorderline High Triglyceride 150-199 mg/dLHigh Triglyceride: 200-499 mg/dLVery High Triglyceride: greater than or equal to 5OO mg/dL Cholesterol 144 <200 mg/dL [facility] Comment:Desirable Cholestero l: less than 200 mg/dLBorderline High Cholesterol: 200-239 mg/dLHigh Cholesterol: greater than 239 mg/dL LDL Cholesterol Calculated 79 <100 mg/dL [facility] Comment:Desirable LDL: less than 100 mg/dLNear Optimal/Above Optimal LDL: 110- 129 mg/dLBorderline High LDL: 130-159 mg/dLHigh LDL: 160-189 mg/dLVery High LDL: greater than or equal to 190 mg/dL HDL Cholesterol 45 >40 mg/dL [facility] Comment:Desirable HDL: great er than 40 mg/dL Note: This HDL assay may give artificially low results in patients with liver disease. Blood 07/24/2023 11:4 2 AM EST 07/24/2023 1:20 PM EST us Kailyn Henson MD LAB BLOOD ORDERABLES Fin al Result [facility] [address] [place] [address] [phone] * Hepatitis C Ab (03/16/2023 11:33 AM EDT) Hepatitis C Antibody Nonreactive Nonreactive [facility] Comment:Antibodies to HCV no t detected; does not exclude early acuteHCV infection. Blood 03/16/2023 11:3 3 AM EDT 03/16/2023 1:14 PM EDT us Samantha Phoenix MD LAB BLOOD ORDERABLES Final Res ult Performing Organization Address [facility] Co de Phone Number [facility] [address] [place] [address] [phone] * HIV Ab/Ag ([place] [facility]) (03/16/2023 11:33 AM EDT) HIV AB/AG Nonreactive Nonreactive [facility] Comment:HIV-1 p24 Ag and/or HIV-1/HIV-2 Ab not detected.A test result that is nonreactive does not exclude thepossibility of exposure to or infection with HIV-1 and/orHIV-2. Nonreactive results in this assay for individualswith prior exposure to HIV-1 and/or HIV-2 may be due toantigen and antibody levels that are below the limit ofdetection of this assay.[employer] HIV Ag/Ab Combo assay result andsupplemental assay results should be interpreted inconjunction with the patient's clinical presentation,history and other laboratory results. If the results areinconsistent with clinical evidence, additional testing issuggested to confirm the result. 03/16/2023 11:3 3 AM EDT 03/16/2023 1:14 PM EDT us Samantha Phoenix MD LAB BLOOD ORDERABLES Final Res ult Performing Organization Address [facility] Co de Phone Number [facility] [address] [place] [address] [phone] from Last 3 Months or Most Recently Relevant to Health Maintenance [place] [address] [place] [address] C3 HSN FULL Care Teams Humidifier Maintenance Worker Relationship Specialty Start Date End Date Samantha Phoenix MD [address] [place] [phone] PCP - General Family Medicine 07/18/20
--- OUTSIDE RECORDS SUMMARY | 2024-10-30 12:28 | XMS_ITS | Clinical Summary ---
Author Organization Patient Business Ser [facility] Address [address] [place] [address] Care Team Providers Care Car Framer Name Role Phone Unavailable Primary Care Provider Unavailabl e Social History Tobacco Use Types Packs/Day Years Used Date Smoking Tobacco: Never Assessed Sex and Gender Information Value Date Recorded Sex Assigned at Not on file Legal Sex Male 8:51 AM EST Gender Identity Not on file Sexual Orientation Not on file Plan of Treatment Health Maintenance Due Date Last Done Comments DTaP,Tdap,and Td Vaccines (1 - Tdap) 2004 Hepatitis B Vaccines (1 of 3 - 19+ 3-dose series) 2004 Cholesterol Screening (Lipid Panel) 09/01/2023 Depression Screening 09/01/2023 HIV Screening 09/01/2023 Hepatitis C Screening 09/01/2023 Social Influencers of Health Screening 09/01/2023 COVID-19 Vaccine ( - 2023-2 5 season) 2024 Influenza Vaccine (#1) 2024 07/13/2019 HIB Vaccines Aged Out No longer eligi ble based on patient's age to complete this topic HPV Vaccines Aged Out No longer eligi ble based on patient's age to complete this topic Hepatitis A Vaccines Aged Out No long er eligible based on patient's age to complete this topic IPV Vaccines Aged Out No longer eligi ble based on patient's age to complete this topic MMR Vaccines Aged Out No longer eligi ble based on patient's age to complete this topic Meningococcal ACWY Vaccine Aged Out N o longer eligible based on patient's age to complete this topic Meningococcal B Vacine Aged Out No lo nger eligible based on patient's age to complete this topic Pneumococcal Vaccine: Pediat rics (0 to 5 Years) and At-Risk Patients (6 to 64 Years) Aged Out No longer eligi ble based on patient's age to complete this topic RSV Immunization Patients Un jennifer 20 months Aged Out No longer eligible b ased on patient's age to complete this topic Varicella Vaccines Aged Out No longer eligible based on patient's age to complete this topic
[2024-10-30] MEDS: diazePAM 2 MG TABLET PO (12:51)
[2024-10-30] MEDS: methylPREDNISolone Sod Succ 125 MG/2 ML VIAL 60 MG IM (12:51)
[2024-10-30 12:58] VITALS: BP 143/84; PULSE 78; RESP 18; TEMP 37; O2SAT 100
== END 2024-10-30 13:00 | disposition home or self-care (01) ==
PROVIDERS: Emergency Provider Internal Medicine
DX: M54.16 Radiculopathy, lumbar region (principal); M54.50 Low back pain, unspecified
CPT/HCPCS: 96372; 99282; 99284; J2919

== ENCOUNTER 2024-11-01 14:05 | Outpatient (REF) | payer MEDICAID, SELFPAY ==
--- NOTE | ~2024-11-01 | XR_ITS ---
EXAMINATION: X-RAY LUMBAR SPINE 4 VIEWS. CLINICAL INFORMATION: Low back pain. Radiculopathy. TECHNIQUE: 4 views lumbar spine. COMPARISON: January 02, 2016 Small ribs at T12 No acute cortical disruption or malalignment. Loss of the physiologic lumbar lordosis. Spina bifida occulta S1. No lytic or blastic lesions. XR/XR lumbar spine 4V min IMPRESSION: No acute fracture or listhesis. Electronically signed by: Pedro Dewitt MD 11/01/2024 03:55 PM EDT
--- OUTSIDE RECORDS SUMMARY | 2024-11-01 16:51 | XMS_ITS | Encounter Summary ---
Author Organization [employer] Address [address] [facility] [address] [place] [address] Care Team Providers Care Field Appraiser Name Role Phone Samantha Phoenix MD Primary Care Provider [phone] Reason for Visit * Reason Onset Date Comments Appointment Request 10/31/2024 Encounter Details Date Type Department Care Team ([facility] st Contact Info) Description 10/31/2024 Telephone [facility] [address] [place], [place] [phone] Samantha Phoenix MD [address] [place] [address] Appointment Request Social History Tobacco Use Types Packs/Day Years [...] PM EDT documented as of this encounter Miscellaneous Notes * Telephone Encounter - Patrica Meier RN - 11/01/2024 12:55 PM EDT Called pt. He states that he coughed and started getting a click and pop feeling in his lower back on his mid spine. Pt. Stated with this low back pain x 5 months ago and was DX with Sciatica. Pt wasseen at [facility] ED on 10/30/24 DX with Lumbar Radiculopathy. No Xrays or other imaging tests done. Pt. Was given a course of Prednisone 20mg once daily x 7 days and also a RX for Cyclobenzaprine 5mg tablets three times a day as needed. Pt. Was also referred to [facility]. Pt looking for imaging studies to be ordered as he still has mid lower back pain. Protocol Used: Back Pain (Adult) Protocol-Based Disposition: See in Office or Video Visit within 3 Days- Pt. Missed Office visit this am. Advised can go to [facility] walk in this afternoon for further assessment. Video visit offer not recorded Positive Triage Questions: * Moderate back pain (e.g., interferes with normal activities) and present > 3 days * Patient wants to be seen * All higher-acuity triage questions were negative Care Advice Discussed: * Reassurance and Education - Back Pain * Cold or Heat * Sleep * Pain Medicines * Telephone Encounter - Elvia Hart - 11/01/2024 12:52 PM EDT Tc from pt requesting to r/s sick on site appt. * Telephone Encounter - Ana Davis RN - 10/31/2024 3:41 PM EDT Emergency Room Name and Visit Date: [facility] ER 10/30/24 Discharge Dx: Lumbar radiculopathy Discharge Medications: prednisone 20 mg tablet PO DAILY 7 Days Qty: 7 0RF cyclobenzaprine 5 mg tablet PO TID PRN (Reason: muscle spasm) 7 Days Qty: 21 0RF Follow up Instructions: Follow up with [facility] and PCP. Call returned to Lj Broussard to triage below. Reports was contacted by [facility] and advise PCP will need to perform ER follow up and refer patient if appropriate. Pt states was able to spanish moss picker Rx for both prednisone and muscle relaxers. States still having back pain. Pt agrees to appt tomorrow with team provider for evaluation and follow up to discuss referrals. Reviewed home care advise, ER precautions and reasons to call back. Protocol Used: Recent Medical Visit for Illness Follow-up Call (Adult) Protocol-Based Disposition: See in Office or Video Visit Today or Tomorrow Future Appointments Date Time Provider Department Center 11/01/2024 10:15 AM Joy Moore MD MEDICINE [facility] Insurance verified as active per Real Time Eligibility in [employer]. Video visit offer not recorded Positive Triage Question: * Patient wants to be seen * All higher-acuity triage questions were negative Care Advice Discussed: * Reasons To Call Back - You become worse * Telephone Encounter - Singh Renae - 10/31/2024 3:34 PM EDT Patient calling to report ED visit on : Date: 10/30/24 Hospital: [facility] Seen for: Pinched Disc in Spine, Nerve Pain Symptomatic Yes *if yes message should go to Triage Patient advised will forward to team nurse for follow up Contact pt at [phone] documented in this encounter Plan of Treatment Not on file documented as of this encounter Visit Diagnoses Not on filedocumented in this encounter Additional Health Concerns Assessment Noted Time PHQ-9 Depression Total Score: 17 023 4:23 PM EDT documented as of this encounter Care Teams Field Appraiser Relationship Specialty Start Date End Date Samantha Phoenix MD [address] [place] [address] PCP - General Family Medicine 07/18/20 documented as of this encounter
--- OUTSIDE RECORDS SUMMARY | 2024-11-01 16:51 | XMS_ITS | Encounter Summary ---
Author Organization [employer] Address [address] [facility] [address] [place] [address] Care Team Providers Care Cotton Farmworker Name Role Phone Samantha Phoenix MD Primary Care Provider [phone] Reason for Visit * Reason Onset Date Comments No Show 11/01/2024 Encounter Details Date Type Department Care Team ([facility] st Contact Info) Description 11/01/2024 Telephone [facility] [address] [place], [place] [phone] Samantha Phoenix MD [address] [place] [address] No Show Social History Tobacco Use Types Packs/Day Years Used Date Smoking Tobacco: Every Day Cigarettes Passive Smoke Exposure: Current Smokeless Tobacco: Current Depression Answer Date Recorded Patient Health Questionnaire-9 Score 17 04/02/2023 Housing Stability Answer Date Recorded What is your housing situation today? I have quinnever silva 05/20/[address] you [...] encounter Miscellaneous Notes * Telephone Encounter - Gayatri Fleming RN - 11/01/2024 11:02 AM EDT TC placed to pt. At [phone], call went straight to VM however VM box not set up. TC placed to [phone], no answer, left message requesting call back to Red TeaM RN Upon receipt of message. Pt. To f/up prn * Telephone Encounter - Tarsha Coello - 11/01/2024 10:44 AM EDT Pt no showed to appt on 11/01/24. documented in this encounter Plan of Treatment Not on file documented as of this encounter Visit Diagnoses Not on filedocumented in this encounter Additional Health Concerns Assessment Noted Time PHQ-9 Depression Total Score: 17 023 4:23 PM EDT documented as of this encounter Care Teams Cotton Farmworker Relationship Specialty Start Date End Date Samantha Phoenix MD [address] [place] [address] PCP - General Family Medicine 07/18/20 documented as of this encounter
--- OUTSIDE RECORDS SUMMARY | 2024-11-01 16:51 | XMS_ITS | Encounter Summary ---
Author Organization [employer] Address [address] [facility] [address] [place] [address] Care Team Providers Care Global Security Architect Name Role Phone Samantha Phoenix MD Primary Care Provider [phone] Reason for Referral * Consultation (Routine) - Pending Review Specialty Diagnoses / Procedures Referred By Taj t Referred To Contact Pain Medicine Diagnoses Radiculopathy due to disorder of intervertebral disc of lumbar spine Kailyn Henson MD [address] [place] [address] Phone: tel: fax: Referral ID Status Reason Start Date Expiration Date Visits Requested Visits Authorized [id number] Pending Review Specialty Services Required 11/01/2024 11/01/2025 1 1 * Imaging (Urgent) - Authorized Specialty Diagnoses / Procedures Referred By Contjuan t Referred To Contact Radiology Diagnoses Radiculopathy due to disorder of intervertebral disc of lumbar spine Procedures MR Lumbar Spine w/o Contrast Kailyn Henson MD [address] [place] [address] Phone: tel: fax: [address] Phone: tel: fax: Referral ID Status Reason Start Date Expiration Date V isits Requested Visits Authorized [id number] Authorized 11/01/2024 11/01/2025 1 1 Encounter Details Date Type Department Care Team (Latest Contact Info) Description 11/01/2024 1:20 PM EDT Office Visit [facility] [address] [place] [address] Kailyn Henson MD [address] [place] [address] Radiculopathy due to disorder of intervertebral disc of lumbar spine (Primary Dx); Essential hypertension Social History Tobacco Use Types Packs/Day Years [...] t he electric, gas, oil or water [employer] threatened to shut off services in your home? No 05/20/2023 Depression Answer Date Recorded Patient Health Questionnaire-2 Score 5 04/02/2023 Sex and Gender Information Value Date Recorded Sex Assigned at Male 06/02/2022 10:14 AM EDT Legal Sex Male 10:14 AM EDT Gender Identity Male 06/02/2022 10:14 AM EDT Sexual Orientation Choose not to disclose 2022 2:39 PM EDT documented as of this encounter Last Filed Vital Signs Vital Sign Reading Time Taken Comments Blood Pressure 140/90 11/01/2024 2:15 PM EDT Pulse 76 11/01/2024 1:23 PM EDT Temperature 36.4 ??C (97.5 ??F) 11/01/2024 1:23 PM ED T Respiratory Rate 16 11/01/2024 1:23 PM EDT Oxygen Saturation 98% 11/01/2024 1:23 PM EDT Inhaled Oxygen Concentration - - Weight 60 kg (132 lb 3.2 oz) 11/01/2024 1:23 PM EDT Height - - Body Mass Index 22 09/14/2024 2:31 PM EST documented in this encounter Progress Notes * Kailyn Henson MD - 11/01/2024 1:20 PM EDT SUBJECTIVE: Lj Broussard is a 38 y.o. year old male who presents for Walk In Center/ED fu LBP . Denies recent illness, injury, or hospitalization. Acute Concerns: Patient here for follow-up after being seen at [facility] on 10/30/2024 with low back pain and radiculopathy symptoms. He tells me that he fails worsening back pain related to both legs after he coughed 3days ago, he felt that the pain and burning sensation slipped down to his back and legs and he has been having trouble walking since. He has been normally urinating daily although he did have urinaryincontinence at the time the pain started 3 days ago, he has daily bowel movement and pain does notget any worse with Valsalva maneuvers. Pain is precipitated by walking, bending at the low back. Ling not have fever, chills, dysuria and she has not had any recent falls. She has history of recurrent sciatic pain mostly under right leg for many years. He was discharged on prednisone and Flexeril and he has been taking ibuprofen with minimal improvement of symptoms. He also forgot to take his blood pressure medications yesterday and today. 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 Review of Systems Constitutional: Negative for fever. HENT: Negative for congestion, ear pain, rhinorrhea and sore throat. Eyes: Negative for pain and discharge. Respiratory: Negative for cough and shortness of breath. Cardiovascular: Negative for chest pain. Gastrointestinal: Negative for abdominal pain, constipation, diarrhea and nausea. Endocrine: Negative for polydipsia. Genitourinary: Negative for dysuria and frequency. Musculoskeletal: Positive for arthralgias, back pain and gait problem. Negative for neck pain. Neurological: Negative for dizziness, numbness and headaches. Psychiatric/Behavioral: Negative for agitation. OBJECTIVE: Vitals: 11/01/24 1323 11/01/24 1415 BP: (!) 149/95 (!) 140/90 BP Location: Left arm Right arm Patient Position: Sitting Sitting BP Cuff Size: Adult Adult Pulse: 76 Resp: 16 Temp: 97.5 ??F (36.4 ??C) TempSrc: Oral SpO2: 98% Weight: 132 lb 3.2 oz (60 kg) Physical Exam Constitutional: Appearance: Normal appearance. HENT: Right Ear: Tympanic membrane and ear canal normal. Left Ear: Tympanic membrane and ear canal normal. Mouth/Throat: Mouth: Mucous membranes are moist. Pharynx: No oropharyngeal exudate or posterior oropharyngeal erythema. Eyes: Pupils: Pupils are equal, round, and reactive to light. Cardiovascular: Rate and Rhythm: Normal rate and regular rhythm. Heart sounds: No murmur heard. Pulmonary: Breath sounds: Normal breath sounds. No wheezing. Abdominal: General: Bowel sounds are normal. Palpations: Abdomen is soft. Tenderness: There is no abdominal tenderness. Musculoskeletal: Cervical back: Normal range of motion. No tenderness. Thoracic back: Tenderness present. Lumbar back: Spasms and tenderness present. Decreased range of motion. Positive right straight leg raise test and positive left straight leg raise test. Comments: Limping / antalgic gait Skin: General: Skin is warm. Neurological: General: No focal deficit present. Mental Status: He is alert and oriented to person, place, and time. Psychiatric: Mood and Affect: Mood normal. Problem List Items Addressed This Visit Radiculopathy due to disorder of intervertebral disc of lumbar spine - Primary Suspect spinal cord compression due to symptoms. DC prednisone and start dexamethasone 6 mg x 5 days, discussed importance of taking the medication with meals to prevent GI side effects. Also to take BP meds daily so that hypertension is not severely uncontrolled. Take tramadol along with Tylenol as needed severe pain, hold for sedation. Can DC baclofen and Flexeril. Will order x-rays but he really needs an MRI of the lumbar spine to check for cord compression or cauda equina syndrome. We discussed regarding going to ED immediately if he develops worsening of lower extremity numbness, inability to walk, loss of strength or urinary retention. Will refer to pain clinic. Relevant Medications traMADol (Ultram) 50 MG tablet Other Relevant Orders MR Lumbar Spine w/o Contrast XR Lumbar Spine Complete 4+ Views Referral to Pain Medicine Essential hypertension Today due to pain and patient not taking his medication for 2 days. Advised to take amlodipine TALYA today and to put alarms to take it on a regular basis. I will give tramadol to take as needed until he has MRI and is seen by pain clinic. Follow Up: Current Outpatient Medications on File Prior to Visit Medication Sig Dispense Refill amLODIPine (Norvasc) 5 MG tablet Take 1 tablet (5 mg) by mouth Once per day. 90 tablet 3 Blood Pressure kit 1 each 2 times daily. 1 kit 0 [DISCONTINUED] baclofen (Lioresal) 20 MG tablet Take 1 tablet (20 mg) by mouth if needed in the morning, at noon, and at bedtime for muscle spasms for up to 10 days. 30 tablet 0 No current facility-administered medications on file prior to visit. documented in this encounter Miscellaneous Notes * Assessment & Plan Note - Kailyn Henson MD - 11/01/2024 2:17 PM EDT Associated Problem(s): Essential hypertension Uncontrolled today due to pain and patient not taking his medication for 2 days. Advised to take amlodipine TALYA today and to take it on a regular basis. I will give tramadol to take as needed until he has his MRI and is seen by pain clinic. Advised to hold for sedation, MS changes, severe nausea or constipation * Assessment & Plan Note - Kailyn Henson MD - 11/01/2024 2:13 PM EDT Associated Problem(s): Radiculopathy due to disorder of intervertebral disc of lumbar spine Suspect spinal cord compression due to symptoms. DC prednisone and start dexamethasone 6 mg x 5 days, discussed importance of taking the medication with meals to prevent GI side effects. Also to take BP meds daily so that hypertension is not severely uncontrolled. Take tramadol along with Tylenol as needed severe pain, hold for sedation. Can DC baclofen and Flexeril. Will order x-rays but he really needs an MRI of the lumbar spine to check for cord compression or cauda equina syndrome. We discussed regarding going to ED immediately if he develops worsening of lower extremity numbness, inability to walk, loss of strength or urinary retention. Will refer to pain clinic. documented in this encounter Plan of Treatment Scheduled Orders Name Type Priority Associated Diagnoses Orde r Schedule MR Lumbar Spine w/o Contrast Imaging Urgent Radiculopathy due to disorder of intervertebral disc of lumbar spine Expected: 11/01/2024 (Approximate), Expires: 11/01/2025 Scheduled Referrals Name Type Priority Associated Diagnoses Orde r Schedule Referral to Pain Medicine Outpatient Referral Routine Radiculopathy due to disorder of intervertebral disc of lumbar spine Expected: 11/01/2024 (Approximate), Expires: 11/01/2025 documented as of this encounter Procedures Procedure Name Priority Date/Time Associated Diagnosis Comments XR LUMBAR SPINE COMPLETE 4+ VIEWS Routine 11/01/2024 2:05 PM EDT Radiculopathy due to disorder of intervertebral disc of lumbar spine documented in this encounter Results * XR Lumbar Spine Complete 4+ Views (11/01/2024 2:05 PM EDT) Anatomical Region Laterality Modality Spine, L-spine Radiographic Jeanie ging 11/01/2024 2:05 PM EDT Narrative 11/01/2024 3:58 PM EDT ?[facility] [facility] ?[address] ?[place] [address] ?XRay Report ? Signed ? Patient: Bobo,Lj ?MR#: [id number] ?? [id number] ? : 1985 ?Acct:[id number] ? Age/Sex: 38 / M ?ADM Date: 11/01/24 ? Loc: HO.HHCX ? Attending Dr: Kailyn Henson MD ? Ordering Physician: Kailyn Henson MD ?? Date of Service: 11/01/24 ?? Procedure(s): XR lumbar spine 4V min ?? Accession Number(s): [id number] ? cc: Kailyn Henson MD ? EXAMINATION: ?? X-RAY LUMBAR SPINE 4 VIEWS. ? CLINICAL INFORMATION: ?? Low back pain. Radiculopathy. ? TECHNIQUE: ?? 4 views lumbar spine. ? COMPARISON: January 02, 2016 ? Small ribs at T12 ?? No acute cortical disruption or malalignment. Loss of the physiologic ?? lumbar lordosis. ?? Spina bifida occulta S1. ?? No lytic or blastic lesions. ? XR/XR lumbar spine 4V min ?? IMPRESSION: ?? No acute fracture or listhesis. ? Electronically signed by: ??Pedro Dewitt MD ??11/01/2024 03:55 PM ?? EDT RP ? Dictated By: ?Pedro Black MD ? Signed By: ?<Electronically signed by Pedro Khalil MD in OV> ? 11/01/24 1555 ? DD/ 1405 ? TD/TT: 11/01/24 1519 ? [employer] Package Symbol Stamper: ? Procedure Note Prasanth, Image - 11/01/[address] [address] XRay Report Signed Patient: Odell Broussard#: [id number] : 1985Acct:[id number] Age/Sex: 38 / MADM Date: 11/01/24 Loc: HO.HHCX Attending Dr: Kailyn Henson MD Ordering Physician: Kailyn Henson MD Date of Service: 11/01/24 Procedure(s): XR lumbar spine 4V min Accession Number(s): [id number] cc: Kailyn Henson MD EXAMINATION: X-RAY LUMBAR SPINE 4 VIEWS. CLINICAL INFORMATION: Low back pain. Radiculopathy. TECHNIQUE: 4 views lumbar spine. COMPARISON: January 02, 2016 Small ribs at T12 No acute cortical disruption or malalignment. Loss of the physiologic lumbar lordosis. Spina bifida occulta S1. No lytic or blastic lesions. XR/XR lumbar spine 4V min IMPRESSION: No acute fracture or listhesis. Electronically signed by: Pedro Dewitt MD 11/01/2024 03:55 PM EDT RP Dictated By: Pedro Black MD Signed By: <Electronically signed by Pedro Khalil MDin OV> 11/01/24 1555 DD/ 1405 TD/TT: 11/01/24 1519 [employer]icon[employer] Package Symbol Stamper: Kailyn Henson MD IMG XR PROCEDURES Final Result documented in this encounter Visit Diagnoses Diagnosis Radiculopathy due to disorder of intervertebral disc of lumbar spine- Primary Essential hypertension Unspecified essential hypertension documented in this encounter Additional Health Concerns Assessment Noted Time PHQ-9 Depression Total Score: 17 023 4:23 PM EDT documented as of this encounter Care Teams Global Security Architect Relationship Specialty Start Date End Date Samantha Phoenix MD [address] [place] [phone] PCP - General Family Medicine 07/18/20 documented as of this encounter
--- OUTSIDE RECORDS SUMMARY | 2024-11-01 16:51 | XMS_ITS | Encounter Summary ---
Author Organization [employer] Address [address] [facility] [address] [place] [address] Care Team Providers Care Digital Production Operator Name Role Phone Samantha Phoenix MD Primary Care Provider [phone] Reason for Visit * Reason Onset Date Comments Nurse Triage 07/22/2023 Encounter Details Date Type Department Care Team ([facility] st Contact Info) Description 07/22/2023 Telephone [facility] [address] [place] [address] Samantha Phoenix MD [address] [place] [address] Nurse Triage Social History Tobacco Use Types Packs/Day Years Used Date Smoking Tobacco: Every Day Cigarettes Smokeless Tobacco: Current Depression Answer Date Recorded [...] encounter Miscellaneous Notes * Telephone Encounter - Holly Meyer RN - 07/22/2023 12:17 PM EST Triage call Pt reports ED visit [facility] 07/19/23 for abdominal pain. Pt reports constant cramping whichis over the mid abdomen which feels like gas builds up all the time . Pt reports last BM was 07/21/23 . Pt does have constipation at times but, not yesterday. Pt reports passes flatus 6-7 times per day but, it still builds up and that is abnormal . Pt reports going to Ed for abdominal pain but,also for STD checks , had been sexually active with someone reporting gonorrhea and chlamydia. Pt reports not drinking adequate liquids. Advised to increase liquids to 64oz daily, juices, decaf tea, broth, water. Pt agrees to try to do that as instructed. Pt is given ED follow up apt with Dr. Henson 07/24/23 @ 1030am. Insurance is verified as active prior to booking. Requesting [facility] report for chart from [place] clinical customer care voice consultant. Protocol Used: Abdominal Pain - Male (Adult) Protocol-Based Disposition: See in Office or Video Visit Today Override (Final) Disposition: See in Office or Video Visit within 3 Days Override Reason: Other Video visit not offered Positive Triage Question: * Patient wants to be seen * All higher-acuity triage questions were negative Care Advice Discussed: * Drink Clear Fluids * Pass a Stool * Reasons To Call Back - Severe pain lasts over 1 hour - Constant pain lasts over 2 hours - Intermittent pains (e.g., comes and goes, cramps) lasts over 48 hours - You become worse * Telephone Encounter - Igor Javier - 07/22/2023 11:42 AM EST Symptom: Abdominal Pain - Male Outcome: Schedule an urgent appointment (within 4 hours) or talk to a nurse or provider soon Reason: Started within the past 3 days The caller accepted this outcome documented in this encounter Plan of Treatment Not on file documented as of this encounter Visit Diagnoses Not on filedocumented in this encounter Additional Health Concerns Assessment Noted Time PHQ-9 Depression Total Score: 17 023 4:23 PM EDT documented as of this encounter Care Teams Digital Production Operator Relationship Specialty Start Date End Date Samantha Phoenix MD [address] [place] [phone] PCP - General Family Medicine 07/18/20 documented as of this encounter
--- OUTSIDE RECORDS SUMMARY | 2024-11-01 16:51 | XMS_ITS | Clinical Summary ---
Author Organization Patient Business Ser [facility] Address [address] [place] [address] Care Team Providers Care Commercial Glazier Name Role Phone Unavailable Primary Care Provider [...]
--- OUTSIDE RECORDS SUMMARY | 2024-11-01 16:51 | XMS_ITS | Clinical Summary ---
Author Organization [employer] Address [address] [facility] 7t [place] [address] Care Team Providers Care Vice President Corporate Communications Name Role Phone Samantha Phoenix MD Primary Care Provider [phone] Allergies No known active allergies Medications * This document contains information received from the source organization and may not represent a complete record from that organization. Blood Pressure kit 1 each 2 times daily. 1 kit 4 025 Active amLODIPine (Norvasc) 5 MG tabletIndications: Elevated blood pressure reading Take 1 tablet (5 mg) by mouth Once per day. 90 tablet 3 5 026 Active dexAMETHasone (Decadron) 6 MG tablet Take 1 tablet (6 mg) by mouth Once per day for 5 days. 5 tablet 5 025 Active traMADol (Ultram) 50 MG tabletIndications: Radiculopathy due to disorder of intervertebral disc of lumbar spine Take 1 tablet (50 mg) by mouth if needed in the morning, at noon, and at bedtime for severe pain for up to 5 days. 15 tablet 5 025 Active celecoxib (CeleBREX) 200 MG capsule Take 1 capsule (200 mg) by mouth 2 times daily for 20 days. 40 capsule 5 025 baclofen (Lioresal) 20 MG tablet Take 1 tablet (20 mg) by mouth if needed in the morning, at noon, and at bedtime for muscle spasms for up to 10 days. 30 tablet 5 025 Discontinu ed(Ineffec tive) Active Problems Problem Noted Date Diagnosed Date Radiculopathy due to disorde r of intervertebral disc of lumbar spine 11/01/2024 Assessment & Plan (11/01/2024 2:13 PM EDT): Suspect spinal cord compression due to symptoms. [...] urinary retention. Will refer to pain clinic. Rectal bleeding 09/01/2023 Assessment & Plan (09/01/2023 [...] labs FU w/ PCP in 4 wks Essential hypertension 05/20/2023 Assessment & Plan (11/01/2024 3:20 PM EDT): Uncontrolled today due to pain and patient not taking his medication for 2 days. Advised to take amlodipine TALYA today and to take it on a regular basis. I will give tramadol to take as needed until he has his MRI and is seen by pain clinic. Advised to hold for sedation, MS changes, severe nausea or constipation Assessment & Plan (09/01/2023 2:04 PM EST): Amlodipine re-ordered, to start at 5mg daily Assessment & Plan (11/01/2024 2:16 PM EDT): >>ASSESSMENT AND PLAN FOR ESSENTIAL HYPERTENSION WRITTEN ON 05/20/2023 7:36 PM BY AIRAM QUESADA MD New onset. Will start amlodipine 2.5mg and fu BP with RN in 3-4w. Counseled re low salt diet/increase moderate physical activity. Check home BP BIW and prn CP/BENITEZ/JESSICA Counseled to quit smoking, not interested at this time. >>ASSESSMENT AND PLAN FOR ELEVATED BLOOD PRESSURE READING WRITTEN ON 05/20/2023 7:36 PM BY AIRAM QUESADA MD New onset HTN, see above MDD (major depressive disorder) 03/26/2023 Assessment & [...] in life PLAN: 1. Follow up with [facility]: Not recommended for follow-up 2. Patient goal is to be more active and motivated 3. Behavioral Recommendations a. Referral for OP individual therapy in placed with [facility]. b. Practive mindfulness techniques to decrease depressive [...] in life PLAN: 1. Follow up with [facility]: Recommended for follow-up: Patient requested a second [...] Plan (03/16/2023 1:48 PM EDT): Referral to [facility], wants to talk to someone to help [...] Encounters Date Type Department Care Team Description 11/01/2024 1:20 PM EDT Office Visit [facility] [address] [place] [phone] Airam Quesada MD Radiculopathy due to disorder of intervertebral disc of lumbar spine (Primary Dx); Essential hypertension 11/01/2024 Telephone [facility] [address] [place] [address] Samantha Phoenix MD No Show 10/31/2024 Telephone [facility] [address] [place] [phone] Samantha Phoenix MD Appointment Request 10/14/2024 Population Health Risk Score [facility] ([facility]) Department [address] [place] [phone] Provider, Population Health Generic 09/14/2024 3:00 PM EST Office Visit [facility] [address] [place] [address] Name, MD Rayo Sciatica of right side (Primary Dx); Essential hypertension; Elevated blood pressure reading 08/17/2024 Telephone [facility] [address] [place] [address] Paula Donald MA recall from Last 3 [...] 3.2 oz) 11/01/2024 1:23 PM EDT Height 165.1 cm (5' 5 ) 09/14/2024 2:31 PM EST Body Mass Index 22 09/14/2024 2:31 PM EST Plan of Treatment [...] 10/21/2021, 01/14/2021, 12/17/2020 Influenza Vaccine (#1) 2024 , 07/13/2019, 06/03/2013, Additional history exists Tobacco Screening [...] disorder of intervertebral disc of lumbar spine LIPID PANEL WITH REFLEX TO DIRECT LDL Routine 07/24/2023 11:42 AM EST Elevated blood pressure reading HEPATITIS C ANTIBODY Routine 03/16/2023 11:33 AM EDT Screening examination for sexually transmitted disease HIV ANTIBODY/ANTIGEN ([place] DPH) Routine 03/16/2023 11:33 AM EDT from Last 3 Months or Most Recently Relevant to Health Maintenance Results * XR Lumbar Spine Complete 4+ Views (11/01/2024 2:05 PM EDT) Anatomical Region Laterality Modality Spine, L-spine Radiographic Jeanie ging 11/01/2024 2:05 PM EDT Narrative 11/01/2024 3:58 PM EDT ?[facility] ?[address] ?[place] [address] ?XRay Report ? Signed ? Patient: Lj Broussard ?MR#: [id number] ?? [id number] ? : 1985 ?Acct:[id number] ? Age/Sex: 38 / M ?ADM Date: 11/01/24 ? Loc: HO.HHCX ? Attending Dr: Airam Quesada MD ? Ordering Physician: Airam Quesada MD ?? Date of Service: 11/01/24 ?? Procedure(s): XR lumbar spine 4V min ?? Accession Number(s): [id number] ? cc: Airam Quesada MD ? EXAMINATION: ?? X-RAY LUMBAR SPINE [...] DD/ 1405 ? TD/TT: 11/01/24 1519 ? Billing Manager: ? Procedure Note Donberlinter, Image - 11/01/[address] [address] XRay Report Signed Patient: Lj BroussardMR#: [id number] : 1985Acct:[id number] Age/Sex: 38 / MADM Date: 11/01/24 Loc: HO.HHCX Attending Dr: Airam Quesada MD Ordering Physician: Airam Quesada MD Date of Service: 11/01/24 Procedure(s): XR lumbar spine 4V min Accession Number(s): [id number] cc: Airam Quesada MD EXAMINATION: X-RAY LUMBAR SPINE 4 VIEWS. [...] Pedro Dewitt MD 11/01/2024 03:55 PM EDT Dictated By: Pedro Black MD Signed By: <Electronically signed by Pedro Khalil MDin OV> 11/01/24 1555 DD/ 1405 TD/TT: 11/01/24 1519 Billing Manager: us Airam Quesada MD IMG XR PROCEDURES Final Result * Lipid Panel with Reflex to Direct LDL (07/24/2023 11:42 AM EST) Triglycerides 103 <150 mg/dL [facility] Comment:Desirable Triglyceri de: less than 150 mg/dLBorderline High Triglyceride 150-199 mg/dLHigh Triglyceride: 200-499 mg/dLVery High Triglyceride: greater than or equal to 5OO mg/dL Cholesterol 144 <200 mg/dL [facility] Comment:Desirable Cholestero l: less than 200 mg/dLBorderline High Cholesterol: 200-239 mg/dLHigh Cholesterol: greater than 239 mg/dL LDL Cholesterol Calculated 79 <100 mg/dL [facility] Comment:Desirable LDL: less than 100 mg/dLNear Optimal/Above Optimal LDL: 110- 129 mg/dLBorderline High LDL: 130-159 mg/dLHigh LDL: 160-189 mg/dLVery High LDL: greater than or equal to 190 mg/dL HDL Cholesterol 45 >40 mg/dL [facility] Comment:Desirable HDL: great er than 40 mg/dL Note: This HDL assay may give artificially low results in patients with liver disease. Blood 07/24/2023 11:4 2 AM EST 07/24/2023 1:20 PM EST us Airam Quesada MD LAB BLOOD ORDERABLES Fin al Result Performing Organization Address [facility]/State/ZIP Co de Phone Number [facility] [address] [place] [phone] * Hepatitis C Ab (03/16/2023 11:33 AM EDT) Hepatitis C Antibody Nonreactive Nonreactive [facility] Comment:Antibodies to HCV no t detected; does not exclude early acuteHCV infection. Blood 03/16/2023 11:3 3 AM EDT 03/16/2023 1:14 PM EDT Samantha Phoenix MD LAB BLOOD ORDERABLES Final Res ult Performing Organization Address [facility]/ZIP Co de Phone Number [facility] [address] [place] [address] [phone] * HIV Ab/Ag (PEPE LARA) (03/16/2023 11:33 AM EDT) HIV AB/AG Nonreactive Nonreactive [facility] Comment:HIV-1 p24 Ag and/or HIV-1/HIV-2 Ab not detected.A test result that is nonreactive does not exclude thepossibility of exposure to or infection with HIV-1 and/orHIV-2. Nonreactive results in this assay for individualswith prior exposure to HIV-1 and/or HIV-2 may be due toantigen and antibody levels that are below the limit ofdetection of this assay.[employer] Maintenance HIV Ag/Ab Combo assay result andsupplemental assay results should be interpreted inconjunction with the patient's clinical presentation,history and other laboratory results. If the results areinconsistent with clinical evidence, additional testing issuggested to confirm the result. 03/16/2023 11:3 3 AM EDT 03/16/2023 1:14 PM EDT Samantha Phoenix MD LAB BLOOD ORDERABLES Final Res ult Performing Organization Address [facility] Co de Phone Number [facility] [address] [place] [address] [phone] from Last 3 Months or Most Recently Relevant to Health Maintenance Insurance [employer] H[employer] FULL Care Teams Vice President Corporate Communications Relationship Specialty Start Date End Date Samantha Phoenix MD [address] [place] [phone] PCP - General Family Medicine 07/18/20
== END 2024-11-01 14:06 | disposition home or self-care (01) ==
LOC: HO.HHCX 14:05
PROVIDERS: Visit Provider Internal Medicine
DX: M51.16 Intervertebral disc disorders with radiculopathy, lumbar region (principal)
CPT/HCPCS: 72110

== ENCOUNTER → 2024-11-01 14:05 | Outpatient (BNV) | payer MEDICAID, SELFPAY | PROVIDERS: Visit Provider Radiology Diagnostic Radiology | DX: M54.16 Radiculopathy, lumbar region (principal) | CPT/HCPCS: 72110 ==

== ENCOUNTER 2024-11-02 15:36 | Outpatient (REF) | payer MEDICAID, SELFPAY ==
--- NOTE | ~2024-11-02 | MR_ITS ---
EXAMINATION: MR LUMBAR SPINE WITHOUT CONTRAST CLINICAL INFORMATION: Lower extremity weakness, low back pain, herniated disc, rule out cord compression. COMPARISON: No prior MRI. Lumbar spine radiographs 11/01/2024. TECHNIQUE: Multiplanar multisequence MR imaging of the lumbar spine was done without IV contrast. Examination was performed on a 1.5 Leonor Siemens magnet, utilizing standard sequences. FINDINGS: CORONAL ALIGNMENT: -There is a very gentle left convex thoracolumbar scoliosis. SAGITTAL ALIGNMENT: -There is straightening of the normal lordosis. -There is no subluxation. LUMBOSACRAL JUNCTION: -Normal. There are 5 fcy-zjd-kaasbkh lumbar-type vertebral bodies. VERTEBRAL BODIES/BONE MARROW: -There are no compression deformities. -There is no abnormal bone marrow edema or abnormal infiltrating bone marrow signal. DISCS: -Mild to moderate loss of disc height and signal at T12-L1. -Mild loss of disc height and signal at L5-S1. -Remainder of the intervertebral discs appear normal. SPINAL CANAL: -No abnormal developmental findings. CONUS MEDULLARIS: -Terminates at L1. Morphology and signal is normal. INTRADURAL NERVE ROOTS: - Within normal limits. Axial Disc Space Images: T12-L1: Shallow diffuse concentric disc bulge. No significant mass effect upon the thecal sac. Normal facets. No significant central canal or neural foraminal narrowing. L1-L2: Minimal concentric disc bulge without significant mass effect. Normal facets. No central canal or neural foraminal narrowing. L2-L3: No disc pathology. Normal facets. No central canal or neural foraminal narrowing. L3-L4: No disc pathology. Normal facets. No central canal or neural foraminal narrowing. L4-L5: No disc pathology. Normal facets. No central canal or neural foraminal narrowing. L5-S1: There is a broad-based protrusion of disc material centrally, with a superimposed right lateral extrusion of disc material with mild inferior migration, measuring 0.9 x 0.8 x 1.6 cm (AP, TRV, CC). This contacts and impinges the traversing right S1 and S2 nerve roots within the right subarticular recess. There is resultant mild to moderate central canal stenosis. There is minimal narrowing of the left subarticular recess. There is mild to moderate right greater than left neural foraminal narrowing. IMAGED SI JOINTS: -Normal. PARAVERTEBRAL AND INCLUDED EXTRASPINAL SOFT TISSUES: -Normal. MR/MR lumbar spine wo con IMPRESSION: Predominant pathology is a central disc protrusion at L5-S1 with a superimposed large right subarticular recess disc extrusion, which is contacting and impinging the traversing right S1 and S2 nerve roots. See above for details. Electronically signed by: Aleksander Davila MD 11/02/2024 04:28 PM EDT
--- OUTSIDE RECORDS SUMMARY | 2024-11-02 17:45 | XMS_ITS | Encounter Summary ---
Author Organization [employer] Address [address] [facility] 7t [place] [address] Care Team Providers Care It Instructor Name Role Phone Samantha Phoenix MD Primary Care Provider [phone] Reason for Visit * Reason Onset Date Comments No Show 11/01/2024 Encounter Details Date Type Department Care Team ([facility] st Contact Info) Description 11/01/2024 Telephone [facility] [address] [place], [place] [phone] Samantha Phoenix MD [address] [place] [address] No Show Social History Tobacco Use Types [...] AM EDT TC placed to pt. At [phone], call went straight to VM however VM box not set up. TC placed to [phone], no answer, left message requesting call back [...] documented as of this encounter Care Teams It Instructor Relationship Specialty Start Date End Date Samantha Phoenix MD [address] [place] [address] PCP - General Family Medicine 07/18/20 documented as of this encounter
--- OUTSIDE RECORDS SUMMARY | 2024-11-02 17:45 | XMS_ITS | Encounter Summary ---
Author Organization [employer] Address [address] [facility] 7t [place] [address] Care Team Providers Care Ux Ui Designer Name Role Phone Samantha Phoenix MD Primary Care Provider [phone] Reason for Visit * Reason Onset Date Comments Nurse Triage 07/22/2023 Encounter Details Date Type Department Care Team ([facility] st Contact Info) Description 07/22/2023 Telephone [facility] [address] [place] [address] Samantha Phoenix MD [address] [place] [address] Nurse Triage Social History Tobacco Use Types [...] EST Triage call Pt reports ED visit [facility] 07/19/23 for abdominal pain. Pt reports constant [...] verified as active prior to booking. Requesting [facility] report for chart from [place] clinical nanny caregiver. Protocol Used: Abdominal Pain - Male (Adult) [...] documented as of this encounter Care Teams Ux Ui Designer Relationship Specialty Start Date End Date Samantha Phoenix MD [address] [place] [address] PCP - General Family Medicine 07/18/20 documented as of this encounter
--- OUTSIDE RECORDS SUMMARY | 2024-11-02 17:45 | XMS_ITS | Encounter Summary ---
Author Organization [employer] Address [address] [facility] 7t [place] [address] Care Team Providers Care Wool Grader Name Role Phone Samantha Phoenix MD Primary Care Provider [phone] Reason for Referral * Consultation (Routine) - Pending Review Specialty Diagnoses / Procedures Referred By Taj t Referred To Contact Pain Medicine Diagnoses Radiculopathy due to disorder of intervertebral disc of lumbar spine Kailyn Henson MD [address] [place] [address] Phone: tel: fax: Referral ID Status Reason Start Date Expiration Date Visits Requested Visits Authorized [id number] Pending Review Specialty Services Required 11/01/2024 11/01/2025 1 1 * Imaging (Urgent) - Authorized Specialty Diagnoses / Procedures Referred By Contjuan t Referred To Contact Radiology Diagnoses Radiculopathy due to disorder of intervertebral disc of lumbar spine Procedures MR Lumbar Spine w/o Contrast Kailyn Henson MD [address] [place] [address] Phone: tel: fax: [address] Phone: tel: fax: Referral ID Status Reason Start Date Expiration Date V isits Requested Visits Authorized [id number] Authorized 11/01/2024 11/01/2025 1 1 Encounter Details Date Type Department Care Team (Latest Contact Info) Description 11/01/2024 1:20 PM EDT Office Visit [facility] [address] [place] [address] Kailyn Henson MD [address] [place] [address] Radiculopathy due to disorder of intervertebral disc [...] t he electric, gas, oil or water [place] threatened to shut off services in your [...] here for follow-up after being seen at [facility] ED on 10/30/2024 with low back pain [...] Social History Social History Narrative 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 [employer] Has two children, ages 20 and 17 [...] in this encounter Plan of Treatment Scheduled Referrals Name Type Priority Associated Diagnoses Orde r Schedule Referral to Pain Medicine Outpatient Referral Routine Radiculopathy due to disorder of intervertebral disc of lumbar spine Expected: 11/01/2024 (Approximate), Expires: 11/01/2025 documented as of this encounter Procedures Procedure Name Priority Date/Time Associated Diagnosis Comments MR LUMBAR SPINE WO CONTRAST Urgent 2024 3:47 PM EDT Radiculopathy due to disorder of intervertebral disc of lumbar spine XR LUMBAR SPINE COMPLETE 4+ VIEWS Routine 11/01/2024 2:05 PM EDT Radiculopathy due to disorder of intervertebral disc of lumbar spine documented in this encounter Results * MR Lumbar Spine w/o Contrast (2024 3:47 PM EDT) Anatomical Region Laterality Modality Spine, L-spine Magnetic Resonan ce 2024 3:47 PM EDT Narrative 2024 4:32 PM EDT ? [facility] [place] [facility] ?[address] ?[place] [address] ? Magnetic Resonance Report ? Signed ? Patient: Bobo,Lj ?MR#: [id number] ?? [id number] ? : 1985 ?Acct:[id number] ? Age/Sex: 39 / M ?ADM Date: 11/02/24 ? Loc: HO.MRI ? Attending Dr: Kailyn Henson MD ? Ordering Physician: Kailyn Henson MD ?? Date of Service: 11/02/24 ?? Procedure(s): MR lumbar spine wo con ?? Accession Number(s): [id number] ? cc: Kailyn Henson MD ? EXAMINATION: ?? MR LUMBAR SPINE WITHOUT CONTRAST ? CLINICAL INFORMATION: ?? Lower extremity weakness, low back pain, herniated disc, rule out cord ?? compression. ? COMPARISON: ?? No prior MRI. ?? Lumbar spine radiographs 11/01/2024. ? TECHNIQUE: ?? Multiplanar multisequence MR imaging of the lumbar spine was done ?? without IV contrast. Examination was performed on a 1.5 Leonor Siemens ?? magnet, utilizing standard sequences. ? FINDINGS: ? CORONAL ALIGNMENT: ?? -There is a very gentle left convex thoracolumbar scoliosis. ? SAGITTAL ALIGNMENT: ?? -There is straightening of the normal lordosis. ?? -There is no subluxation. ? LUMBOSACRAL JUNCTION: ?? -Normal. There are 5 mus-dtw-bjtvbcl lumbar-type vertebral bodies. ? VERTEBRAL BODIES/BONE MARROW: ?? -There are no compression deformities. ?? -There is no abnormal bone marrow edema or abnormal infiltrating bone ?? marrow signal. ? DISCS: ?? -Mild to moderate loss of disc height and signal at T12-L1. ?? -Mild loss of disc height and signal at L5-S1. ?? -Remainder of the intervertebral discs appear normal. ? SPINAL CANAL: ?? -No abnormal developmental findings. ? CONUS MEDULLARIS: ?? -Terminates at L1. Morphology and signal is normal. ? INTRADURAL NERVE ROOTS: ?? - Within normal limits. ? Axial Disc Space Images: ? T12-L1: Shallow diffuse concentric disc bulge. No significant mass ?? effect upon the thecal sac. Normal facets. No significant central canal ?? or neural foraminal narrowing. ? L1-L2: Minimal concentric disc bulge without significant mass effect. ?? Normal facets. No central canal or neural foraminal narrowing. ? L2-L3: No disc pathology. Normal facets. No central canal or neural ?? foraminal narrowing. ? L3-L4: No disc pathology. Normal facets. No central canal or neural ?? foraminal narrowing. ? L4-L5: No disc pathology. Normal facets. No central canal or neural ?? foraminal narrowing. ? L5-S1: There is a broad-based protrusion of disc material centrally, ?? with a superimposed right lateral extrusion of disc material with mild ?? inferior migration, measuring 0.9 x 0.8 x 1.6 cm (AP, TRV, CC). This ?? contacts and impinges the traversing right S1 and S2 nerve roots within ?? the right subarticular recess. There is resultant mild to moderate ?? central canal stenosis. There is minimal narrowing of the left ?? subarticular recess. There is mild to moderate right greater than left ?? neural foraminal narrowing. ? IMAGED SI JOINTS: ?? -Normal. ? PARAVERTEBRAL AND INCLUDED EXTRASPINAL SOFT TISSUES: ?? -Normal. ? MR/MR lumbar spine wo con ?? IMPRESSION: ?? Predominant pathology is a central disc protrusion at L5-S1 with a ?? superimposed large right subarticular recess disc extrusion, which is ?? contacting and impinging the traversing right S1 and S2 nerve roots. ?? See above for details. ? Electronically signed by: ??Aleksander Davila MD ??2024 04:28 PM EDT RP ? Dictated By: ?Aleksander Davila MD ? Signed By: ?<Electronically signed by Aleksander Davila MD in OV> ?11/02/24 1628 ? DD/ 1547 ? TD/TT: 11/02/24 1605 ? Acquisition Editor: ? Procedure Note Ethan Rader - [address] [address] Magnetic Resonance Report Signed Patient: Lj Broussard#: [id number] : 1985Acct:[id number] Age/Sex: 39 / MADM Date: 11/02/24 Loc: HO.MRI Attending Dr: Kailyn Henson MD Ordering Physician: Kailyn Henson MD Date of Service: 11/02/24 Procedure(s): MR lumbar spine wo con Accession Number(s): [id number] cc: Kailyn Henson MD EXAMINATION: MR LUMBAR SPINE WITHOUT CONTRAST CLINICAL INFORMATION: Lower extremity weakness, low back pain, herniated disc, rule out cord compression. COMPARISON: No prior MRI. Lumbar spine radiographs 11/01/2024. TECHNIQUE: Multiplanar multisequence MR imaging of the lumbar spine was done without IV contrast. Examination was performed on a 1.5 Leonor Siemens magnet, utilizing standard sequences. FINDINGS: CORONAL ALIGNMENT: -There is a very gentle left convex thoracolumbar scoliosis. SAGITTAL ALIGNMENT: -There is straightening of the normal lordosis. -There is no subluxation. LUMBOSACRAL JUNCTION: -Normal. There are 5 nvx-yga-iwjlghb lumbar-type vertebral bodies. VERTEBRAL BODIES/BONE MARROW: -There are no compression deformities. -There is no abnormal bone marrow edema or abnormal infiltrating bone marrow signal. DISCS: -Mild to moderate loss of disc height and signal at T12-L1. -Mild loss of disc height and signal at L5-S1. -Remainder of the intervertebral discs appear normal. SPINAL CANAL: -No abnormal developmental findings. CONUS MEDULLARIS: -Terminates at L1. Morphology and signal is normal. INTRADURAL NERVE ROOTS: - Within normal limits. Axial Disc Space Images: T12-L1: Shallow diffuse concentric disc bulge. No significant mass effect upon the thecal sac. Normal facets. No significant central canal or neural foraminal narrowing. L1-L2: Minimal concentric disc bulge without significant mass effect. Normal facets. No central canal or neural foraminal narrowing. L2-L3: No disc pathology. Normal facets. No central canal or neural foraminal narrowing. L3-L4: No disc pathology. Normal facets. No central canal or neural foraminal narrowing. L4-L5: No disc pathology. Normal facets. No central canal or neural foraminal narrowing. L5-S1: There is a broad-based protrusion of disc material centrally, with a superimposed right lateral extrusion of disc material with mild inferior migration, measuring 0.9 x 0.8 x 1.6 cm (AP, TRV, CC). This contacts and impinges the traversing right S1 and S2 nerve roots within the right subarticular recess. There is resultant mild to moderate central canal stenosis. There is minimal narrowing of the left subarticular recess. There is mild to moderate right greater than left neural foraminal narrowing. IMAGED SI JOINTS: -Normal. PARAVERTEBRAL AND INCLUDED EXTRASPINAL SOFT TISSUES: -Normal. MR/MR lumbar spine wo con IMPRESSION: Predominant pathology is a central disc protrusion at L5-S1 with a superimposed large right subarticular recess disc extrusion, which is contacting and impinging the traversing right S1 and S2 nerve roots. See above for details. Electronically signed by: Aleksander Davila MD 2024 04:28 PM EDT RP Dictated By: Aleksander Davila MD Signed By: <Electronically signed by Aleksander Davila MD in OV> 11/02/24 1628 DD/ 1547 TD/TT: 11/02/24 1605 Acquisition Editor: us Kailyn Henson MD IMG MRI PROCEDURES Final Result * XR Lumbar Spine Complete 4+ Views (11/01/2024 2:05 PM EDT) Anatomical Region Laterality Modality Spine, L-spine Radiographic Jeanie ging 11/01/2024 2:05 PM EDT Narrative 11/01/2024 3:58 PM EDT ?[facility] ?[address] ?[place] [address] ?XRay Report ? Signed ? Patient: Bobo,Lj ?MR#: [id number] ?? [id number] ? : 1985 ?Acct:[id number] ? Age/Sex: 38 / M ?ADM Date: 04/01/25 ? Loc: HO.HHCX ? Attending Dr: Kailyn Henson MD ? Ordering Physician: Kailyn Henson MD ?? Date of Service: 11/01/24 ?? Procedure(s): XR lumbar spine 4V min ?? Accession Number(s): [id number] ? cc: Kailyn Henson MD ? EXAMINATION: [...] DD/ 1405 ? TD/TT: 11/01/24 1519 ? Acquisition Editor: ? Procedure Note Donrogeriosamrudy, Image - 11/01/[address] [address] XRay Report Signed Patient: Odell Broussard#: [id number] : 1985Acct:[id number] Age/Sex: 38 / MADM Date: 11/01/24 Loc: HO.HHCX Attending Dr: Kailyn Henson MD Ordering Physician: Kailyn Henson MD Date of Service: 11/01/24 Procedure(s): XR lumbar spine 4V min Accession Number(s): [id number] cc: Kailyn Henson MD EXAMINATION: X-RAY LUMBAR [...] 11/01/24 1555 DD/ 1405 TD/TT: 11/01/24 1519 Acquisition Editor: Kailyn Henson MD IMG XR PROCEDURES Final Result documented in this encounter Visit Diagnoses Diagnosis Radiculopathy due to disorder of intervertebral disc of lumbar spine- Primary Essential hypertension Unspecified essential hypertension documented in this encounter Additional Health Concerns Assessment Noted Time PHQ-9 Depression Total Score: 17 04/02/ 023 4:23 PM EDT documented as of this encounter Care Teams Wool Grader Relationship Specialty Start Date End Date Samantha Phoenix MD [address] [place] [address] PCP - General Family Medicine 07/18/20 documented as of this encounter
--- OUTSIDE RECORDS SUMMARY | 2024-11-02 17:45 | XMS_ITS | Encounter Summary ---
Author Organization [employer] Address [address] [facility] 7t [place] [address] Care Team Providers Care Claims Account Manager Name Role Phone Samantha Phoenix MD Primary Care Provider [phone] Reason for Visit * Reason Onset Date Comments Appointment Request 10/31/2024 Encounter Details Date Type Department Care Team ([facility] st Contact Info) Description 10/31/2024 Telephone [facility] MEDICINE [address] [place], [place] [phone] Samantha Phoenix MD [address] [place] [address] Appointment Request Social History Tobacco Use Types [...] was DX with Sciatica. Pt was[facility] at [facility] on 10/30/24 DX with Lumbar Radiculopathy. No Xrays or other imaging tests done. Pt. Was given a course of Prednisone 20mg once daily x 7 days and also a RX for Cyclobenzaprine 5mg tablets three times a day as needed. Pt. Was also referred to [facility]. Pt looking for imaging studies to be ordered as he still has mid lower back pain. Protocol Used: Back Pain (Adult) Protocol-Based Disposition: See in Office or Video Visit within 3 Days- Pt. Missed Office visit this am. Advised can go to [facility] walk in this afternoon for further assessment. [...] EDT Emergency Room Name and Visit Date: [facility] 10/30/24 Discharge Dx: Lumbar radiculopathy Discharge Medications: prednisone 20 mg tablet PO DAILY 7 Days Qty: 7 0RF cyclobenzaprine 5 mg tablet PO TID PRN (Reason: muscle spasm) 7 Days Qty: 21 0RF Follow up Instructions: Follow up with [facility] and PCP. Call returned to Lj Broussard to triage below. Reports was contacted by [facility] and advise PCP will need to perform ER follow up and refer patient if appropriate. Pt states was able to corn picker Rx for both prednisone and muscle [...] 11/01/2024 10:15 AM Joy Moore MD MEDICINE [facility] Insurance verified as active per Real Time Eligibility in [employer]. Video visit offer not recorded Positive Triage Question: * Patient wants to be seen * All higher-acuity triage questions were negative Care Advice Discussed: * Reasons To Call Back - You become worse * Telephone Encounter - Singh Renae - 10/31/2024 3:34 PM EDT Patient calling to report ED visit on : Date: 10/30/24 Hospital: [facility] Seen for: Pinched Disc in Spine, Nerve Pain Symptomatic Yes *if yes message should go to Triage Patient advised will forward to team nurse for follow up Contact pt at [phone] documented in this encounter Plan of Treatment Not on file documented as of this encounter Visit Diagnoses Not on filedocumented in this encounter Additional Health Concerns Assessment Noted Time PHQ-9 Depression Total Score: 17 023 4:23 PM EDT documented as of this encounter Care Teams Claims Account Manager Relationship Specialty Start Date End Date Samantha Phoenix MD [address] [place] [address] PCP - General Family Medicine 07/18/20 documented as of this encounter
--- OUTSIDE RECORDS SUMMARY | 2024-11-02 17:46 | XMS_ITS | Clinical Summary ---
Author Organization Patient Business Ser [facility] Address [address] [place] [address] Care Team Providers Care Weight Loss Centre Manager Name Role Phone Unavailable Primary Care Provider [...] - 2023-2 5 season) 2024 Influenza Vaccine (Season Ended) 2025 07/13/20 19 HIB Vaccines Aged Out No longer eligi [...]
--- OUTSIDE RECORDS SUMMARY | 2024-11-02 17:46 | XMS_ITS | Clinical Summary ---
Author Organization [employer] Address [address] [facility] 7t [place] [address] Care Team Providers Care Hydrochloric Area Supervisor Name Role Phone Samantha Phoenix MD Primary Care Provider [phone] Allergies No known active allergies Medications * [...] life PLAN: 1. Follow up with [facility]: Not recommended for follow-up 2. Patient goal [...] life PLAN: 1. Follow up with [facility]: Recommended for follow-up: Patient requested a second [...] Plan (03/16/2023 1:48 PM EDT): Referral to [facility], wants to talk to someone [...] Description 11/01/2024 1:20 PM EDT Office Visit [facility] [address] [place] [phone] Airam Quesada MD Radiculopathy due to disorder of intervertebral disc of lumbar spine (Primary Dx); Essential hypertension 11/01/2024 Telephone [facility] MEDICINE [address] [place] [address] Samantha Phoenix MD No Show 10/31/2024 Telephone [facility] MEDICINE [address] [place] [phone] Samantha Phoenix MD Appointment Request 10/14/2024 Population Health Risk Score [facility] (C[facility]) Department [address] [place] [phone] Provider, Population Health Generic 09/14/2024 3:00 PM EST Office Visit [facility] [address] [place] [phone] Name, MD Rayo Sciatica of right side (Primary Dx); Essential hypertension; Elevated blood pressure reading 08/17/2024 Telephone [facility] MEDICINE [address] [place] [address] Paula Donald [place] recall from Last 3 [...] examination for sexually transmitted disease HIV ANTIBODY/ANTIGEN ([facility]) Routine 03/16/2023 11:33 AM EDT from Last 3 Months or Most Recently Relevant to Health Maintenance Results * MR Lumbar Spine w/o Contrast (2024 3:47 PM EDT) Anatomical Region Laterality Modality Spine, L-spine Magnetic Resonan ce 2024 3:47 PM EDT Narrative 2024 4:32 PM EDT ? [facility] ?[address] ?[place] [address] ? Magnetic Resonance Report ? Signed ? Patient: Bobo,Lj ?MR#: [id number] ?? [id number] ? : 1985 ?Acct:[id number] ? Age/Sex: 39 / M ?ADM Date: 11/02/24 ? Loc: HO.MRI ? Attending Dr: Airam Quesada MD ? Ordering Physician: Airam Quesada MD ?? Date of Service: 11/02/24 ?? Procedure(s): MR lumbar spine wo con ?? Accession Number(s): [id number] ? cc: Airam Quesada MD ? EXAMINATION: ?? MR LUMBAR SPINE [...] LUMBOSACRAL JUNCTION: ?? -Normal. There are 5 cyw-umf-ymlyzsr lumbar-type vertebral bodies. ? VERTEBRAL BODIES/BONE MARROW: [...] signed by Aleksander Davila MD in OV> ?11/02/248 ? DD/ 1547 ? TD/TT: 11/02/24 1605 ? Business System Manager: ? Procedure Note Prasanth, Image - [address] [place] [address] Magnetic Resonance Report Signed Patient: Odell Broussard#: [id number] : 1985Acct:[id number] Age/Sex: 39 / MADM Date: 11/02/24 Loc: HO.MRI Attending Dr: Airam Quesada MD Ordering Physician: Airam Quesada MD Date of Service: 11/02/24 Procedure(s): MR lumbar spine wo con Accession Number(s): [id number] cc: Airam Quesada MD EXAMINATION: MR LUMBAR SPINE WITHOUT CONTRAST [...] subluxation. LUMBOSACRAL JUNCTION: -Normal. There are 5 udd-lze-vajxwla lumbar-type vertebral bodies. VERTEBRAL BODIES/BONE MARROW: -There [...] 11/02/24 1628 DD/ 1547 TD/TT: 11/02/24 1605 Business System Manager: Airam Quesada MD IMG MRI PROCEDURES Final Result * XR Lumbar Spine Complete 4+ Views (11/01/2024 2:05 PM EDT) Anatomical Region Laterality Modality Spine, L-spine Radiographic Jeanie ging 11/01/2024 2:05 PM EDT Narrative 11/01/2024 3:58 PM EDT ?[facility] ?[address] ?[place] [address] ?XRay Report ? Signed ? Patient: Lj Broussard ?MR#: [id number] ?? [id number] ? : 1985 ?Acct:[id number] ? Age/Sex: 38 / M ?ADM Date: 11/01/24 ? Loc: HO.HHCX ? Attending Dr: Airam Quesada MD ? Ordering Physician: Airam Quesada MD ?? Date of Service: 11/01/24 ?? Procedure(s): XR lumbar spine 4V min ?? Accession Number(s): [id number] ? cc: Airam Quesada MD ? EXAMINATION: [...] DD/ 1405 ? TD/TT: 11/01/24 1519 ? Business System Manager: ? Procedure Note Donotuseyaater, Image - 11/01/[address] [address] XRay Report Signed Patient: Odell Broussard#: [id number] : 1985Acct:[id number] Age/Sex: 38 / MADM Date: 11/01/24 [facility] Attending Dr: Airam Quesada MD Ordering Physician: Airam Quesada MD Date of Service: 11/01/24 Procedure(s): XR lumbar spine 4V min Accession Number(s): [id number] cc: Airam Quesada MD EXAMINATION: X-RAY LUMBAR [...] MD 11/01/2024 03:55 PM EDT Dictated By: Perdo Black MD Signed By: <Electronically signed by Pedro Khalil MDin OV> 11/01/24 1555 DD/ 1405 TD/TT: 11/01/24 1519 Business System Manager: Airam Quesada MD IMG XR PROCEDURES Final Result * Lipid Panel with Reflex to Direct LDL (07/24/2023 11:42 AM EST) Triglycerides 103 <150 mg/dL [facility] Comment:Desirable Triglyceri de: less than 150 mg/dLBorderline High Triglyceride 150-199 mg/dLHigh Triglyceride: 200-499 mg/dLVery High Triglyceride: greater than or equal to 5OO mg/dL Cholesterol 144 <200 mg/dL [facility] Comment:Desirable Cholestero l: less than 200 mg/dLBorderline High Cholesterol: 200-239 mg/dLHigh Cholesterol: greater than 239 mg/dL LDL Cholesterol Calculated 79 <100 mg/dL [facility] Comment:Desirable LDL: less than 100 mg/dLNear Optimal/Above Optimal LDL: 110- 129 mg/dLBorderline High LDL: 130-159 mg/dLHigh LDL: 160-189 mg/dLVery High LDL: greater than or equal to 190 mg/dL HDL Cholesterol 45 >40 mg/dL [facility] Comment:Desirable HDL: great er than 40 mg/dL Note: This HDL assay may give artificially low results in patients with liver disease. Blood 07/24/2023 11:4 2 AM EST 07/24/2023 1:20 PM EST us Airam Quesada MD LAB BLOOD ORDERABLES Fin al Result Performing Organization Address [facility] Co de Phone Number [facility] [address] [place] [phone] * Hepatitis C Ab (03/16/2023 11:33 AM EDT) Hepatitis C Antibody Nonreactive Nonreactive [facility] Comment:Antibodies to HCV no t detected; does not exclude early acuteHCV infection. Blood 03/16/2023 11:3 3 AM EDT 03/16/2023 1:14 PM EDT us Samantha Phoenix MD LAB BLOOD ORDERABLES Final Res ult Performing Organization Address [facility] Co de Phone Number [facility] [address] [place] [phone] * HIV Ab/Ag ([facility]) (03/16/2023 11:33 AM EDT) HIV AB/AG Nonreactive Nonreactive [facility] Comment:HIV-1 p24 Ag and/or HIV-1/HIV-2 Ab not detected.A test result that is nonreactive does not exclude thepossibility of exposure to or infection with HIV-1 and/orHIV-2. Nonreactive results in this assay for individualswith prior exposure to HIV-1 and/or HIV-2 may be due toantigen and antibody levels that are below the limit ofdetection of this assay.The [employer] HIV Ag/Ab Combo assay result andsupplemental assay results should be interpreted inconjunction with the patient's clinical presentation,history and other laboratory results. If the results areinconsistent with clinical evidence, additional testing issuggested to confirm the result. 03/16/2023 11:3 3 AM EDT 03/16/2023 1:14 PM EDT us Samantha Phoenix MD LAB BLOOD ORDERABLES Final Res ult [facility] [address] [place] [address] [phone] from Last 3 Months or Most Recently Relevant to Health Maintenance Insurance C3 [employer] F[employer] Care Teams Hydrochloric Area Supervisor Relationship Specialty Start Date End Date Samantha Phoenix MD [address] [place] [phone] PCP - General Family Medicine 07/18/20
== END 2024-11-02 15:37 | disposition home or self-care (01) ==
LOC: HO.MRI 15:36
PROVIDERS: PCP Internal Medicine; Visit Provider Internal Medicine
DX: M51.16 Intervertebral disc disorders with radiculopathy, lumbar region (principal)
CPT/HCPCS: 72148

== ENCOUNTER → 2024-11-02 15:39 | Outpatient (BNV) | payer MEDICAID, SELFPAY | PROVIDERS: PCP Internal Medicine; Visit Provider Radiology Diagnostic Radiology | DX: M51.27 Other intervertebral disc displacement, lumbosacral region (principal) | CPT/HCPCS: 72148 ==

== ENCOUNTER 2024-11-08 13:54 | Outpatient (AMB) | payer MEDICAID, SELFPAY ==
--- NOTE | 2024-11-08 13:59 | HO.SPINEOV ---
Vital Signs 11/08/24 14:04 Height 5 ft 5 in Weight 140 lb BMI 23.3 Intake Visit Reasons: LBP Intake Note: Mr. Broussard is here today c/o low back pain. Cranberry Sorter Required: No Allergies No Known Allergies Allergy (Verified 11/08/24 14:03) Physical Exam Vital Signs: BMI result Body Mass Index 23.3 Assessment & Plan Assessment & Plan (1) Lumbar disc herniation: Code(s): M51.26 - Other intervertebral disc displacement, lumbar region Category: Medical Plan Dear Dr Henson, Thank you for referring Mr Broussard to our office today. He is a very nice 39-year-old gentleman works as a [employer], who has had sciatic pain on and off at times, who coughed about 10 days ago or so and when he did he felt an acute pain in his back radiating down the back of his leg into his calf. He ended up in the emergency room. He was treated with prednisone, cyclobenzaprine and tramadol. He was also trying things like Motrin and Tylenol. He was discharged, followed up in your office, MRI was ordered and it showed an acute disc herniation on the right at L5-S1. He currently feels better today than he has felt in a week or so. However, the pain is still intense when he is standing walking sitting or lying down. No cauda equina symptoms. PMH: Otherwise healthy gentleman, has some mild hypertension Social hx: Smokes a pack of cigarettes a day smokes marijuana daily, occasional alcohol Medications: Cyclobenzaprine, tramadol Allergies: None Physical exam: Strength is normal in bilateral lower extremities but he does have an absent Achilles reflex. Sensation is normal. He has an antalgic gait. Imaging review: Lumbar MRI done at [facility] shows a right L5-S1 extruded disc fragment compressing the right S1 nerve Impression: 39-year-old male with history of sciatic pains on and off through the years, has done some conservative treatment including PT and cortisone shots here at [facility], who cough last week and felt intense increase in his pain who now has a herniated disc on the right at L5-S1. I showed him his imaging, we reviewed the natural history of disc herniations. Typically 90% of these will go away on their own. He is still very early in the process so I am going to send him back to physical therapy just as a matter of due diligence. I would like to see him back in a month. If he is no better and the pain is still intense, I told him he would be a good candidate for a microdiskectomy. I do not think there is any role for injections at this time. Thank you for allowing us to care for your patient. The total time spent with this visit with this patient was 45 minutes reviewing history, physical exam, lumbar imaging review, and implementation of treatment plan or further diagnostic testing Sunday Nichols MD,PhD [facility] Orders: Orders PT Evaluation and Treatment Today M51.26 - Other intervertebral disc displacement, lumbar region Coding Level of Care Code New Pt Level 4 (49279) Diagnoses Lumbar disc herniation M51.26
[2024-11-08 14:04] VITALS: BMI 23.3
--- OUTSIDE RECORDS SUMMARY | 2024-11-08 17:03 | XMS_ITS | Encounter Summary ---
Author Organization [employer] Address [address] [facility] 7t [place] [address] Care Team Providers Care Certified Credit Counselor Name Role Phone Samantha Phoenix MD Primary Care Provider [phone] Reason for Visit * Reason Onset Date Comments Medication Question 11/03/2024 Encounter Details Date Type Department Care Team ([facility] st Contact Info) Description 11/03/[address] [facility] MEDICINE [address] [place], [place] [phone] Samantha Phoenix MD [address] [place] [address] Medication Question Social History Tobacco Use Types Packs/Day Years [...] encounter Miscellaneous Notes * Telephone Encounter - Colt Wade RN - 11/04/2024 11:02 AM EDT TC placed to patient [phone] regarding below message. RN inquired about patient recent status.Pt reported he did not go to the ED for further evaluation for increased pain because he did not have transportation. Today patient reported a tolerable 7/10 lower back and Right LE pain. Pt also reported he only takes Tramadol 50 mg once a day instead on how it is prescribed. RN encouraged patientagain if the pain is uncontrollable at any time he should go to the ED for further evaluation. Pt verbalized understanding. Pt to F/U PRN. * Telephone Encounter - Colt Wade RN - 11/03/2024 12:24 PM EDT TC placed to patient [phone] regarding below message. RN advise patient since his back and Right LE pain is uncontrollable at this time, pt should go to the ED for further evaluation. Pt agreed to recommendation. RN will status check 11/04/24. * Telephone Encounter - Singh Renae - 11/03/2024 12:16 PM EDT TC from pt requesting a alternate medication for traMADol (Ultram) 50 MG tablet due to pt stating that the tramadol does nothing for him. Pt states that PCP told him to let him know if the medication is not working for him. Contact pt at [phone] documented in this encounter Plan of Treatment Not on file documented as of this encounter Visit Diagnoses Not on filedocumented in this encounter Additional Health Concerns Assessment Noted Time PHQ-9 Depression Total Score: 17 023 4:23 PM EDT documented as of this encounter Care Teams Certified Credit Counselor Relationship Specialty Start Date End Date Samantha Phoenix MD [address] [place] [address] PCP - General Family Medicine 07/18/20 documented as of this encounter
--- OUTSIDE RECORDS SUMMARY | 2024-11-08 17:03 | XMS_ITS | Clinical Summary ---
Author Organization Patient Business Ser [facility] Address [address] [place] [address] Care Team Providers Care Data Entry Assistant Name Role Phone Unavailable Primary Care Provider [...] age to complete this topic Meningococcal B Vaccine Aged Out No l onger eligible based on patient's age to complete [...]
--- OUTSIDE RECORDS SUMMARY | 2024-11-08 17:03 | XMS_ITS | Encounter Summary ---
Author Organization [employer] Address [address] [facility] 7t [place] [address] Care Team Providers Care Diesel Dragline Operator Name Role Phone Samantha Phoenix MD Primary Care Provider [phone] Reason for Visit * Reason Onset Date Comments Nurse Triage 07/22/2023 Encounter Details Date Type Department Care Team ([facility] st Contact Info) Description 07/22/2023 Telephone [facility] MEDICINE [address] [place] [address] Samantha Phoenix MD [address] [place] [address] Nurse Triage Social History Tobacco Use Types [...] EST Triage call Pt reports ED visit [facility] 07/19/23 for abdominal pain. Pt reports constant [...] verified as active prior to booking. Requesting [facility] report for chart from [place] clinical intensive care anaesthetist. Protocol Used: Abdominal Pain - Male (Adult) [...] documented as of this encounter Care Teams Diesel Dragline Operator Relationship Specialty Start Date End Date Samantha Phoenix MD [address] [place] [phone] PCP - General Family Medicine 07/18/20 documented as of this encounter
--- OUTSIDE RECORDS SUMMARY | 2024-11-08 17:03 | XMS_ITS | Clinical Summary ---
Author Organization [employer] Address [address] [facility] [address] [place] [address] Care Team Providers Care Hosiery Mender Name Role Phone Samantha Phoenix MD Primary Care Provider [phone] Allergies No known active allergies Medications * [...] day for 5 days. 5 tablet 5 Active baclofen (Lioresal) 20 MG tablet Take 1 tablet (20 mg) by mouth if needed in the morning, at noon, and at bedtime for muscle spasms for up to 10 days. 30 tablet 5 025 Discontinu ed(Ineffec tive) traMADol (Ultram) 50 MG tabletIndications: Radiculopathy due to disorder of intervertebral disc of lumbar spine Take 1 tablet (50 mg) by mouth if needed in the morning, at noon, and at bedtime for severe pain for up to 5 days. 15 tablet 5 025 Active Problems Problem Noted Date Diagnosed Date [...] in life PLAN: 1. Follow up with [facility] [place]: Not recommended for follow-up 2. Patient goal [...] in life PLAN: 1. Follow up with [facility] [place]: Recommended for follow-up: Patient requested a second [...] Plan (03/16/2023 1:48 PM EDT): Referral to [facility], wants to talk to someone to [...] Encounters Date Type Department Care Team Description 11/03/[address] [phone] Samantha Phoenix MD Medication Question 11/03/[address] [phone] Samantha Phoenix MD Results 11/01/2024 1:20 PM EDT Office Visit [facility] [address] [place] [phone] Airam Quesada MD Radiculopathy due to disorder of intervertebral disc of lumbar spine (Primary Dx); Essential hypertension 11/01/2024 Telephone [facility] [address] [place] [address] Samantha Phoenix MD No Show 10/31/2024 Telephone [facility] [address] [place] [phone] Samantha Phoenix MD Appointment Request 10/14/2024 Population Health Risk Score [facility] ([facility]) Department [address] [place] [phone] Provider, Population Health Generic 09/14/2024 3:00 PM EST Office Visit [facility] [address] [place] [phone] Rayo Buitrago MD Sciatica of right side (Primary Dx); Essential hypertension; Elevated blood pressure reading 08/17/2024 Telephone [facility] [address] [place] [address] Paula Donald MA recall from Last 3 [...] examination for sexually transmitted disease HIV ANTIBODY/ANTIGEN ([place] DP) Routine 03/16/2023 11:33 AM EDT from Last 3 Months or Most Recently Relevant to Health Maintenance Results * MR Lumbar Spine w/o Contrast (2024 3:47 PM EDT) Anatomical Region Laterality Modality Spine, L-spine Magnetic Resonan ce 2024 3:47 PM EDT Narrative 2024 4:32 PM EDT ? [facility] ?[address] ?[place] [address] ? Magnetic Resonance Report ? Signed ? Patient: Bobo,Lj ?MR#: [id number] ?? [id number] ? : 1985 ?Acct:[id number] ? Age/Sex: 39 / M ?ADM Date: //25 ? Loc: HO.MRI ? Attending Dr: Airam Quesada MD ? Ordering Physician: Airam Quesada MD ?? Date of Service: 11/02/24 ?? Procedure(s): MR lumbar spine wo con ?? Accession Number(s): [id number] ? cc: Airam Quesada MD ? EXAMINATION: [...] LUMBOSACRAL JUNCTION: ?? -Normal. There are 5 ggv-lmv-myraldc lumbar-type vertebral bodies. ? VERTEBRAL BODIES/BONE MARROW: [...] DD/ 1547 ? TD/TT: 11/02/24 1605 ? Outsole Splicer: ? Procedure Note Ethan Rader - [address] [place] [address] Magnetic Resonance Report Signed Patient: Odell Broussard#: [id number] : 1985Acct:[id number] Age/Sex: 39 / MADM Date: 11/02/24 Loc: HO.MRI Attending Dr: Airam Quesada MD Ordering Physician: Airam Quesada MD Date of Service: 11/02/24 Procedure(s): MR lumbar spine wo con Accession Number(s): [id number] cc: Airam Quesada MD EXAMINATION: MR LUMBAR [...] subluxation. LUMBOSACRAL JUNCTION: -Normal. There are 5 tfe-drr-kbsudoo lumbar-type vertebral bodies. VERTEBRAL BODIES/BONE MARROW: -There [...] 11/02/24 1628 DD/ 1547 TD/TT: 11/02/24 1605 Outsole Splicer: us Airam Quesada MD IMG MRI PROCEDURES Final Result * XR Lumbar Spine Complete 4+ Views (11/01/2024 2:05 PM EDT) Anatomical Region Laterality Modality Spine, L-spine Radiographic Jeanie ging 11/01/2024 2:05 PM EDT Narrative 11/01/2024 3:58 PM EDT ?[facility] ?[address] ?[place] [address] ?XRay Report ? Signed ? Patient: Lj Broussard ?MR#: [id number] ?? [id number] ? : 1985 ?Acct:[id number] ? Age/Sex: 38 / M ?ADM Date: 11/01/24 ? Loc: HO.HHCX ? Attending Dr: Airam Quesada MD ? Ordering Physician: Airam Quesada MD ?? Date of Service: 11/01/24 ?? Procedure(s): XR lumbar spine 4V min ?? Accession Number(s): [id number] ? cc: Airam Quesada MD ? EXAMINATION: [...] fracture or listhesis. ? Electronically signed by: ??ePdro Dewitt MD ??11/01/2024 03:55 PM ?? EDT RP ? Dictated By: ?Pedro Black MD ? Signed By: ?<Electronically signed by Pedro Khalil MD in OV> ? 11/01/24 1555 ? DD/ 1405 ? TD/TT: 11/01/24 1519 ? Outsole Splicer: ? Procedure Note Donviolette, Image - 11/01/2024 [facility] [address] [place] [address] XRay Report Signed Patient: Lj BroussardMR#: [id number] : 1985Acct:[id number] Age/Sex: 38 / MADM Date: 11/01/24 Loc: HO.HHCX Attending Dr: Airam Quesada MD Ordering Physician: Airam Quesada MD Date of Service: 11/01/24 Procedure(s): XR lumbar spine 4V min Accession Number(s): [id number] cc: Airam Quesada MD EXAMINATION: X-RAY LUMBAR [...] 11/01/24 1555 DD/ 1405 TD/TT: 11/01/24 1519 Outsole Splicer: Airam Quesada MD IMG XR PROCEDURES Final Result * Lipid Panel with Reflex to Direct LDL (07/24/2023 11:42 AM EST) Triglycerides 103 <150 mg/dL [facility] Comment:Desirable Triglyceri de: less than 150 mg/dLBorderline High Triglyceride 150-199 mg/dLHigh Triglyceride: 200-499 mg/dLVery High Triglyceride: greater than or equal to 5OO mg/dL Cholesterol 144 <200 mg/dL [facility] Comment:Desirable Cholestero l: less than 200 mg/dLBorderline High Cholesterol: 200-239 mg/dLHigh Cholesterol: greater than 239 mg/dL LDL Cholesterol Calculated 79 <100 mg/dL [facility] Comment:Desirable LDL: less than 100 mg/dLNear Optimal/Above Optimal LDL: 110- 129 mg/dLBorderline High LDL: 130-159 mg/dLHigh LDL: 160-189 mg/dLVery High LDL: greater than or equal to 190 mg/dL HDL Cholesterol 45 >40 mg/dL [facility] Comment:Desirable HDL: great er than 40 mg/dL Note: This HDL assay may give artificially low results in patients with liver disease. Blood 07/24/2023 11:4 2 AM EST 07/24/2023 1:20 PM EST us Airam Quesada MD LAB BLOOD ORDERABLES Fin al Result Performing Organization Address [facility] de Phone Number [facility] [address] [place] [phone] * Hepatitis C Ab (03/16/2023 11:33 AM EDT) Hepatitis C Antibody Nonreactive Nonreactive [facility] Comment:Antibodies to HCV no t detected; does not exclude early acuteHCV infection. Blood 03/16/2023 11:3 3 AM EDT 03/16/2023 1:14 PM EDT us Samantha Phoenix MD LAB BLOOD ORDERABLES Final Res ult Performing Organization Address [facility] Co de Phone Number [facility] [address] [place] [phone] * HIV Ab/Ag (PEPE DPSaad) (03/16/2023 11:33 AM EDT) HIV AB/AG Nonreactive Nonreactive [facility] Comment:HIV-1 p24 Ag and/or HIV-1/HIV-2 Ab not detected.A test result that is nonreactive does not exclude thepossibility of exposure to or infection with HIV-1 and/orHIV-2. Nonreactive results in this assay for individualswith prior exposure to HIV-1 and/or HIV-2 may be due toantigen and antibody levels that are below the limit ofdetection of this assay.The [employer] HIV Ag/Ab Combo assay result andsupplemental assay results should be interpreted inconjunction with the patient's clinical presentation,history and other laboratory results. If the results areinconsistent with clinical evidence, additional testing issuggested to confirm the result. 03/16/2023 11:3 3 AM EDT 03/16/2023 1:14 PM EDT us Samantha Phoenix MD LAB BLOOD ORDERABLES Final Res ult [facility] [address] [place] [phone] from Last 3 Months or Most Recently Relevant to Health Maintenance Insurance [employer]3 [employer] FULL Care Teams Hosiery Mender Relationship Specialty Start Date End Date Samantha Phoenix MD [address] [place] [phone] PCP - General Family Medicine 07/18/20
--- OUTSIDE RECORDS SUMMARY | 2024-11-08 17:03 | XMS_ITS | Encounter Summary ---
Author Organization [employer] Address [address] [facility] 7[address] [place] [address] Care Team Providers Care Solaris Administrator Name Role Phone Samantha Phoenix MD Primary Care Provider [phone] Reason for Referral * Consultation (Urgent) - Authorized Specialty Diagnoses / Procedures Referred By Contac t Referred To Contact Neurosurgery Diagnoses Radiculopathy due to disorder of intervertebral disc of lumbar spine Kailyn Quesada MD [address] [place] [address] Phone: tel: fax: Sammy Nichols [address] [place] [address] Phone: tel: fax: Referral ID Status Reason Start Date Expiration Date Visits Requested Visits Authorized [id number] Authorized Specialty Services Required 11/04/2024 11/04/2025 6 6 Reason for Visit * Reason Onset Date Comments Results 11/03/2024 Encounter Details Date Type Department Care Team (Late st Contact Info) Description 11/03/2024 Telephone [facility] [address] [place], [place] [phone] Samantha Phoenix MD [address] [place] [address] [phone] Results Social History Tobacco Use Types Packs/Day Years [...] as of this encounter Miscellaneous Notes * Addendum Note - Kailyn Quesada MD - 11/03/2024 10:57 AM EDTAddended by: KAILYN QUESADA on: 11/03/2024 10:57 AM Modules accepted: Orders * Telephone Encounter - Kailyn Quesada MD - 11/03/2024 10:54 AM EDT RN note reviewed, I will order neurosurgery referral, patient should go to ED if he has worsening LB/leg pain, leg weakness or numbness or urinary retention. * Telephone Encounter - Colt Wade RN - 11/03/2024 10:21 AM EDT TC placed to patient [phone] regarding below message. RN informed patient of MRI results. Pt assessed reported he has severe 8/10 lower back and right LE pain. Pt reported no pain relief with current medications. Please advise if agreeable for a referral . Pt to F/U PRN. * Telephone Encounter - Zev Aden - 11/03/2024 9:40 AM EDT Tc from pt returning call in regards prior message. Please return call [phone] * Telephone Encounter - Colt Wade RN - 11/03/2024 9:10 AM EDT TC placed to patient [phone] regarding below message. RN left VM for patient to CB Red team nurses. Pt to f/U PRN. Tc placed to patient daughter(Katlyn) [phone] regarding below message. RN left VM for patientto CB RED team nurses. Pt to F/U PRN. TC placed to patient mother (Shanae) [phone] regarding below message. Rn left VM for patient to CB Red team nurses. Pt to F/U PRN. ----- Message from Kailyn Quesada MD sent at 2024 8:16 PM EDT ----- MRI of L-spine on 2024 showed disc protrusion of L5 and S1 over the spinal cord with mild to moderate central canal stenosis (narrow canal) but no abnormal inflammation or spinal cord compression. Part of the herniated disc (L5-S1) is impinging (compressing) S1 and S2 nerve roots which is definitely causing patient's symptoms of severe back and leg pain with weakness. I called patient to the 3 listed numbers including her daughter's number but there was no answer and I was unable to leave voice message. Please contact patient and check if symptoms improved with dexamethasone and tramadol so that he can be referred to neurosurgery for evaluation of surgical decompression if needed due toextent of the herniation and affect on nerve roots (outpatient referral, it may take few weeks as long as his symptoms do not get any worse). If his symptoms have not improved or gotten worse, pleaseask him to go to emergency room immediately and have them look at the MRI for additional treatment (probably IV steroids). Please check for presence of urinary retention and worsening of leg paresthes ias/weakness. Tell him to also keep pain clinic appt in case neurosurgery decides he does not need surgery at this time. I sent the patient a message via [employer] to call back for MRI results documented in this encounter Plan of Treatment Scheduled Referrals Name Type Priority Associated Diagnoses Orde r Schedule Referral to Neurosurgery Outpatient Referral Urgent Radiculopathy due to disorder of intervertebral disc of lumbar spine Expected: 11/03/2024 (Approximate), Expires: 11/03/2025 documented as of this encounter Visit Diagnoses Diagnosis Radiculopathy due to disorder of intervertebral disc of lumbar spine- Primary documented in this encounter Additional Health Concerns Assessment Noted Time PHQ-9 Depression Total Score: 17 023 4:23 PM EDT documented as of this encounter Care Teams Solaris Administrator Relationship Specialty Start Date End Date Samantha Phoenix MD [address] [place] [phone] PCP - General Family Medicine 07/18/20 documented as of this encounter
== END 2024-11-08 14:34 | disposition home or self-care (01) ==
LOC: HO.HNS 13:55
PROVIDERS: PCP Internal Medicine; Referring Provider Internal Medicine; Visit Provider Physician Assistant
DX: M51.26 Other intervertebral disc displacement, lumbar region (principal)
CPT/HCPCS: 99204

== ENCOUNTER → 2024-11-08 13:54 | Outpatient (BNVA) | payer MEDICAID, SELFPAY | PROVIDERS: PCP Internal Medicine; Referring Provider Internal Medicine; Visit Provider Physician Assistant | DX: M51.26 Other intervertebral disc displacement, lumbar region (principal) | CPT/HCPCS: 99212 ==

== ENCOUNTER 2024-11-18 13:47 | Outpatient (AMB) | payer MEDICAID, SELFPAY ==
[2024-11-18 14:05] VITALS: BP 132/90; PULSE 88; O2SAT 98; BMI 21.5
--- NOTE | 2024-11-18 14:05 | A.OFFVIS_ITS ---
Vital Signs 11/18/24 14:05 Height 5 ft 5 in Weight 129 lb BMI 21.5 BP 132/90 H Blood Pressure Location Rt brachial Position Sitting Pulse 88 Pulse Source Pulse Oximeter Pulse Oximetry (%) 98 Oxygen Delivery Method Room Air Intake Visit Reasons: Radiculopathy due to disorder of interval disc Building Maintenance Repairer Required: No Allergies No Known Allergies Allergy (Verified 11/18/24 14:06) Medication List - Last Reconciled 11/18/24 by Shannon Quiñones, INDUSTRIAL [employer] HELPER cyclobenzaprine 5 mg PO TID PRN 7 days prednisone 20 mg PO DAILY 7 days HPI Comments Details: The patient is a 39-year-old male presenting with chronic lower back pain that radiates down the right leg and ankle. The pain started about seven to eight months ago following a coughing incident that exacerbated the underlying problem of sciatica, linked to pinched discs. The patient describes the pain as constant and stretching, impacting his ability to function normally both daily and at night. Despite trials of Tylenol, Motrin, tramadol, and muscle relaxants, substantial relief has not been achieved. He experiences difficulty sleeping in his preferred position and finds temporary solace in walking. No injuries or significant past medical events contributing to the condition were reported, although no calls for ordered physical therapy have been received yet, thereby holding back potential benefits from this treatment avenue. - Chronic pain present for 7-8 months - Pain worsened initially after a coughing incident, identified as caused by disc herniation and nerve compression - Described as a stretching sensation, constant in nature, with shooting characteristics at times - Radiates down the right leg, extending to the ankle but not the toes - Exacerbated by prolonged sitting and standing; improved slightly by walking - Significant impact on sleeping position; experiencing multiple awakenings due to pain - Triggers include certain physical positions and movements causing nerve contact - Affect: The patient reports significant impact on sleep and ability to perform daily functions, leading to possible frustration and mood challenges. - Analgesia: Mild relief with Tylenol and Motrin; tramadol helped with pain but not muscle tightness. - Adverse Effects: No adverse effects from tramadol leading to limited use. - Activities of Daily Living: Pain disrupts sleep and daily activities; unable to sleep in preferred position; relieved slightly by walking. - Aberrant Drug Related Behaviors: No misuse reported, concerns over medication confusion and proper use noted. Review of Systems Const Details: - Musculoskeletal: Reports chronic lower back pain radiating down the right leg - Neurological: Denies numbness in toes - Sleep: Reports difficulty sleeping due to pain, frequent position changes Physical Exam Vital Signs: Last Vital Signs Pulse 88 11/18/24 14:05 BP 132/90 H 11/18/24 14:05 Pulse Ox 98 11/18/24 14:05 Oxygen Delivery Method Room Air 11/18/24 14:05 BMI result Body Mass Index 21.5 General: awake, alert, oriented. Answers questions appropriately. Fully engaged in examination. Skin: warm, dry, intact HEENT: Normocephalic. Hearing intact. Cardiac: External chest normal in appearance. Respiratory: No cough, audible wheezing or stridor. Abdomen: without gross distension. MS: No obvious swelling or deformities. Able to transition from sit to stand unassisted. Ambulates with bilaterally normal heel strike and toe off Neurological: Oriented to person, place, time and situation. Thought process intact. No gait abnormalities appreciated. Psychiatric: Appropriate mood and affect. Good judgment and insight. Results Reviewed Results Reviewed: 11/02/24 MR/MR lumbar spine wo con FINDINGS: CORONAL ALIGNMENT: -There is a very gentle left convex thoracolumbar scoliosis. SAGITTAL ALIGNMENT: -There is straightening of the normal lordosis. -There is no subluxation. LUMBOSACRAL JUNCTION: -Normal. There are 5 jry-tfq-tzeczwb lumbar-type vertebral bodies. VERTEBRAL BODIES/BONE MARROW: -There are no compression deformities. -There is no abnormal bone marrow edema or abnormal infiltrating bone marrow signal. DISCS: -Mild to moderate loss of disc height and signal at T12-L1. -Mild loss of disc height and signal at L5-S1. -Remainder of the intervertebral discs appear normal. SPINAL CANAL: -No abnormal developmental findings. CONUS MEDULLARIS: -Terminates at L1. Morphology and signal is normal. INTRADURAL NERVE ROOTS: - Within normal limits. Axial Disc Space Images: T12-L1: Shallow diffuse concentric disc bulge. No significant mass effect upon the thecal sac. Normal facets. No significant central canal or neural foraminal narrowing. L1-L2: Minimal concentric disc bulge without significant mass effect. Normal facets. No central canal or neural foraminal narrowing. L2-L3: No disc pathology. Normal facets. No central canal or neural foraminal narrowing. L3-L4: No disc pathology. Normal facets. No central canal or neural foraminal narrowing. L4-L5: No disc pathology. Normal facets. No central canal or neural foraminal narrowing. L5-S1: There is a broad-based protrusion of disc material centrally, with a superimposed right lateral extrusion of disc material with mild inferior migration, measuring 0.9 x 0.8 x 1.6 cm (AP, TRV, CC). This contacts and impinges the traversing right S1 and S2 nerve roots within the right subarticular recess. There is resultant mild to moderate central canal stenosis. There is minimal narrowing of the left subarticular recess. There is mild to moderate right greater than left neural foraminal narrowing. IMAGED SI JOINTS: -Normal. PARAVERTEBRAL AND INCLUDED EXTRASPINAL SOFT TISSUES: -Normal. IMPRESSION: Predominant pathology is a central disc protrusion at L5-S1 with a superimposed large right subarticular recess disc extrusion, which is contacting and impinging the traversing right S1 and S2 nerve roots. See above for details. Assessment & Plan Assessment & Plan (1) Lumbar disc herniation: Code(s): M51.26 - Other intervertebral disc displacement, lumbar region Category: Medical Plan The primary approach for addressing the lumbar disc herniation with associated sciatica is initiating physical therapy, crucial for natural resolution and functional improvement. Lack of PT engagement necessitates proactive patient scheduling. Muscle relaxants, primarily cyclobenzaprine, should be adhered to, offering potential relief from sleep disturbances and muscular tightness, while tramadol's usage should remain minimal due to limited benefits. Overview of NSAI D usage may assist inflammation control if reliable. As an initial strategy, this conservative treatment regime stands, pending effectiveness monitoring. Failure to improve will lead to revisiting the surgical option for discectomy, with detailed risks and benefits clarified in follow-up discussions. The discussed approach matches neurosurgical recommendations, precluding immediate injection interventions. Ongoing monitoring and regular follow-up is essential to re-assess treatment efficacy and coordinate specialist consultations as needed. During the visit, we thoroughly discussed the patient's condition of lumbar disc herniation at L5-S1 and the associated sciatica symptoms. I emphasized the primary treatment pathway of initiating physical therapy, which is often effective in such scenarios, yet advised the patient of the importance of starting this promptly due to therapy delays. We reviewed the conservative management approach, agreeing upon continued use of specific prescribed me dications. I highlighted the potential future need for surgical intervention, such as discectomy if symptoms persist or worsen, including anticipated risks. Alternatives like steroid injections were ruled out given the neurosurgery team's recommendations. I explained the importance of follow-up consultations for progress monitoring and maintaining open dialogue regarding any therapy or medication concerns, ensuring optimal patient engagement and informed decision making. Patient was informed and verbally consented to the use of an ambient scribe for clinic note documentation during this visit. Patient Instructions: - Contact physical therapy using the provided number to schedule appointments. - Take cyclobenzaprine at bedtime to help with muscle tension and sleep. - Limit the use of tramadol and continue with NSAIDs if tolerated. - Practice home exercises as instructed. - Monitor pain levels and activities, report if symptoms worsen. - Attend the neurosurgery follow-up in one month for reassessment. - Call with any questions or if medications are insufficient. Coding Level of Care Code New Pt Level 4 (55368) Complex EM visit Add On G2211 Diagnoses Lumbar disc herniation M51.26
--- OUTSIDE RECORDS SUMMARY | 2024-11-18 14:10 | XMS_ITS | Clinical Summary ---
Author Organization [employer] Address [address] [facility] [address]t [place] [address] Care Team Providers Care Senior Business Consultant Name Role Phone Samantha Phoenix MD Primary Care Provider [phone] Allergies No known active allergies Medications * This document contains information received from the source organization and may not represent a complete record from that organization. Blood Pressure kit 1 each 2 times daily. 1 kit 01/06/20 24 025 Active amLODIPine (Norvasc) 5 MG tabletIndications: Elevated blood pressure reading Take 1 tablet (5 mg) by mouth Once per day. 90 tablet 3 09/14/19 25 026 Active dexAMETHasone (Decadron) 6 MG tablet Take 1 tablet (6 mg) by mouth Once per day for 5 days. 5 tablet 11/02/19 25 Active emtricitabine-teno fovir DF (Truvada) 200-300 MG tablet Take 1 tablet by mouth Once per day. 30 tablet 2 11/15/19 25 026 Active doxycycline (Vibra-Tabs) 100 MG tablet Take 2 tablets (200 mg) by mouth if needed (with 72 hours of unprotected sex) for up to 10 days. Take with a full glass of water and do not lie down for at least 30 minutes after. 40 tablet 11/15/19 25 025 Active baclofen (Lioresal) 20 MG tablet Take 1 tablet (20 mg) by mouth if needed in the morning, at noon, and at bedtime for muscle spasms for up to 10 days. 30 tablet 09/14/19 25 025 Discontinu ed(Ineffec tive) traMADol (Ultram) 50 MG tabletIndications: Radiculopathy due to disorder of intervertebral disc of lumbar spine Take 1 tablet (50 mg) by mouth if needed in the morning, at noon, and at bedtime for severe pain for up to 5 days. 15 tablet 11/02/19 25 025 Active Problems Problem Noted Date Diagnosed [...] in life PLAN: 1. Follow up with [facility]: Not recommended for follow-up 2. Patient goal [...] in life PLAN: 1. Follow up with [facility]: Recommended for follow-up: Patient requested a second [...] (03/16/2023 1:48 PM EDT): Referral to [facility], wants to talk to someone to help maintain his sobriety Tobacco dependence syndrome 08/03/1959 Assessment & Plan (03/16/2023 1:44 PM EDT): Cutting back on his own Down to 6-7 cigarettes and one blunt per day Resolved Problems Problem Noted Date Diagnosed Date Resolved Date Disease due to severe acute respiratory syndrome coronavirus 2 (SARS-CoV-2) 09/06/2022 122 09/2022 Overview (01/02/2023): Problem added by Discern Expert Encounters Date Type Department Care Team Description 11/14/2024 Orders Only [facility] [address] [place] [phone] Samantha Phoenix MD 11/10/2024 Telephone [facility] [address] [place] [phone] Samantha Phoenix MD Recall 11/03/[address] [address] Samantha Phoenix MD Medication Question 11/03/[address] [address] Samantha Phoenix MD Results 11/01/2024 1:20 PM EDT Office Visit [facility] [address] [place] [phone] Airam Quesada MD Radiculopathy due to disorder of intervertebral disc of lumbar spine (Primary Dx); Essential hypertension 11/01/2024 Telephone [facility] [address] [place] [phone] Samantha Phoenix MD No Show 10/31/[address] [address] Samantha Phoenix MD Appointment Request 10/14/2024 Population Health Risk Score [facility] [address] [place] [phone] Provider, Population Health Generic 09/14/2024 3:00 PM EST Office Visit [facility] [address] [place] [phone] Rayo Buitrago MD Sciatica of right side (Primary Dx); Essential hypertension; Elevated blood pressure reading from Last 3 Months Immunizations Name Administration [...] of 2 - PCV) 2004 Depression Monitoring 10/01/2023 04/02/2023, 023 SDOH Screening 03/16/2024 03/16/2023 Depression Screening 04/02/2024 [...] EDT Narrative 2024 4:32 PM EDT ? [place] [facility] ?[address] ?[place] [address] ? Magnetic Resonance Report ? Signed ? Patient: Bobo,Lj ?MR#: [id number] ?? [id number] ? : 1985 ?Acct:[id number] ? Age/Sex: 39 / M ?ADM Date: 11/02/24 ? Loc: HO.MRI ? Attending Dr: Airam Quesada MD ? Ordering Physician: Airam Quesada MD ?? Date of Service: 11/02/24 ?? Procedure(s): MR lumbar spine wo con ?? Accession Number(s): [id number] ? cc: Airam Quesada MD ? EXAMINATION: [...] LUMBOSACRAL JUNCTION: ?? -Normal. There are 5 hja-uwy-xadglbv lumbar-type vertebral bodies. ? VERTEBRAL BODIES/BONE MARROW: [...] DD/ 1547 ? TD/TT: 11/02/24 1605 ? Well Testing Operator: ? Procedure Note Ethan Rader - [address] [address] Magnetic Resonance Report Signed Patient: Lj Broussard#: [id number] : 1985Acct:[id number] Age/Sex: 39 / MADM Date: 11/02/24 Loc: HO.MRI Attending Dr: Airam Quesada MD Ordering Physician: Airam Quesada MD Date of Service: 11/02/24 Procedure(s): MR lumbar spine wo con Accession Number(s): [id number] cc: Airam Quesada MD EXAMINATION: MR LUMBAR [...] subluxation. LUMBOSACRAL JUNCTION: -Normal. There are 5 ozi-jwh-cfabfpl lumbar-type vertebral bodies. VERTEBRAL BODIES/BONE MARROW: -There [...] 11/02/24 1628 DD/ 1547 TD/TT: 11/02/24 1605 Well Testing Operator: us Airam Quesada MD IMG MRI PROCEDURES Final Result * XR Lumbar Spine Complete 4+ Views (11/01/2024 2:05 PM EDT) Anatomical Region Laterality Modality Spine, L-spine Radiographic Jeanie ging 11/01/2024 2:05 PM EDT Narrative 11/01/2024 3:58 PM EDT ?[facility] ?[address] ?[place] [address] ?XRay Report ? Signed ? Patient: Bobo,Lj ?MR#: [id number] ?? [id number] ? : 1985 ?Acct:[id number] ? Age/Sex: 38 / M ?ADM Date: 04/01/25 ? Loc: HO.HHCX ? Attending Dr: Airam Quesada MD ? Ordering Physician: Airam Quesada MD ?? Date of Service: 11/01/24 ?? Procedure(s): XR lumbar spine 4V min ?? Accession Number(s): [id number] ? cc: Airam Quesada MD ? EXAMINATION: [...] DD/ 1405 ? TD/TT: 11/01/24 1519 ? Well Testing Operator: ? Procedure Note Prasanth, Ethan - 11/01/[address] [address] XRay Report Signed Patient: Odell Broussard#: [id number] : 1985Acct:[id number] Age/Sex: 38 / MADM Date: 11/01/24 Loc: HO.HHCX Attending Dr: Airam Quesada MD Ordering Physician: Airam Quesada MD Date of Service: 11/01/24 Procedure(s): XR lumbar spine 4V min Accession Number(s): [id number] cc: Airam Quesada MD EXAMINATION: X-RAY LUMBAR [...] 11/01/24 1555 DD/ 1405 TD/TT: 11/01/24 1519 Well Testing Operator: us Airam Quesada MD IMG XR PROCEDURES Final Result * Lipid Panel with Reflex to Direct LDL (07/24/2023 11:42 AM EST) Triglycerides 103 <150 mg/dL [facility] Comment:Desirable Triglyceri de: less than 150 mg/dLBorderline High Triglyceride 150-199 mg/dLHigh Triglyceride: 200-499 mg/dLVery High Triglyceride: greater than or equal to 5OO mg/dL Cholesterol 144 <200 mg/dL [facility] Comment:Desirable Cholestero l: less than 200 mg/dLBorderline High Cholesterol: 200-239 mg/dLHigh Cholesterol: greater than 239 mg/dL LDL Cholesterol Calculated 79 <100 mg/dL [facility] Comment:Desirable LDL: less than 100 mg/dLNear Optimal/Above Optimal LDL: 110- 129 mg/dLBorderline High LDL: 130-159 mg/dLHigh LDL: 160-189 mg/dLVery High LDL: greater than or equal to 190 mg/dL HDL Cholesterol 45 >40 mg/dL [facility] Comment:Desirable HDL: great er than 40 mg/dL Note: This HDL assay may give artificially low results in patients with liver disease. Blood 07/24/2023 11:4 2 AM EST 07/24/2023 1:20 PM EST us Airam Quesada MD LAB BLOOD ORDERABLES Fin al Result [facility] [address] [place] [phone] * Hepatitis C Ab (03/16/2023 11:33 AM EDT) Hepatitis C Antibody Nonreactive Nonreactive [facility] Comment:Antibodies to HCV no t detected; does not exclude early acuteHCV infection. Blood 03/16/2023 11:3 3 AM EDT 03/16/2023 1:14 PM EDT Samantha Phoenix MD LAB BLOOD ORDERABLES Final Res ult Performing Organization Address [facility] Co de Phone Number [facility] [address] [place] [phone] * HIV Ab/Ag ([facility]) (03/16/2023 11:33 AM EDT) Pathologist [facility] HIV AB/AG Nonreactive Nonreactive [facility] Comment:HIV-1 p24 Ag and/or HIV-1/HIV-2 Ab not detected.A test result that is nonreactive does not exclude thepossibility of exposure to or infection with HIV-1 and/orHIV-2. Nonreactive results in this assay for individualswith prior exposure to HIV-1 and/or HIV-2 may be due toantigen and antibody levels that are below the limit ofdetection of this assay.The [employer]oring Machine Operator HIV Ag/Ab Combo assay result andsupplemental assay results should be interpreted inconjunction with the patient's clinical presentation,history and other laboratory results. If the results areinconsistent with clinical evidence, additional testing issuggested to confirm the result. 03/16/2023 11:3 3 AM EDT 03/16/2023 1:14 PM EDT us Samantha Phoenix MD LAB BLOOD ORDERABLES Final Res ult Performing Organization Address [facility] Co de Phone Number [facility] [address] [place] [phone] from Last 3 Months or Most Recently Relevant to Health Maintenance Insurance C3 [employer]SN FULL Care Teams Senior Business Consultant Relationship Specialty Start Date End Date Samantha Phoenix MD [address] [place] [address] PCP - General Family Medicine 07/18/20
--- OUTSIDE RECORDS SUMMARY | 2024-11-18 14:10 | XMS_ITS | Encounter Summary ---
Author Organization [employer] Address [address] [facility] 7t [place] [address] Care Team Providers Care Emergency Medicine Physician Name Role Phone Samantha Phoenix MD Primary Care Provider [phone] Reason for Visit * Reason Onset Date Comments Nurse Triage 07/22/2023 Encounter Details Date Type Department Care Team ([facility] st Contact Info) Description 07/22/2023 Telephone [facility] [address] [place] [address] Samantha Phoenix MD [address] [place] [address] Nurse Triage Social History Tobacco Use Types [...] EST Triage call Pt reports ED visit [facility] 07/19/23 for abdominal pain. Pt reports constant [...] verified as active prior to booking. Requesting [facility] report for chart from [place] clinical ostomy care nurse. Protocol Used: Abdominal Pain - Male (Adult) [...] documented as of this encounter Care Teams Emergency Medicine Physician Relationship Specialty Start Date End Date Samantha Phoenix MD [address] [place] [phone] PCP - General Family Medicine 07/18/20 documented as of this encounter
--- OUTSIDE RECORDS SUMMARY | 2024-11-18 14:10 | XMS_ITS | Encounter Summary ---
Author Organization [employer] Address [address] [facility] [address]t [place] [address] Care Team Providers Care Agriculture Intern Name Role Phone Samantha Phoenix MD Primary Care Provider [phone] Encounter Details Date Type Department Care Team (Late st Contact Info) Description 11/14/2024 Orders Only [facility] [address] [place], [place] [phone] Samantha Phoenix MD [address] [place], [place] [phone] Social History Tobacco Use Types Packs/Day Years [...] t he electric, gas, oil or water [employer] threatened to shut off services in your [...] documented as of this encounter Care Teams Agriculture Intern Relationship Specialty Start Date End Date Samantha Phoenix MD [address] [place] [address] PCP - General Family Medicine 07/18/20 documented as of this encounter
--- OUTSIDE RECORDS SUMMARY | 2024-11-18 14:10 | XMS_ITS | Clinical Summary ---
Author Organization Patient Business Ser [facility] Address [address] [place] [address] Care Team Providers Care Hospitality Manager Name Role Phone Unavailable Primary Care [...]
== END 2024-11-18 14:21 | disposition home or self-care (01) ==
LOC: HO.PMC 13:47
PROVIDERS: PCP Internal Medicine; Referring Provider Internal Medicine; Visit Provider Registered Nurse Emergency
DX: M51.26 Other intervertebral disc displacement, lumbar region (principal)
CPT/HCPCS: 99204

== ENCOUNTER → 2024-11-18 13:47 | Outpatient (BNVA) | payer MEDICAID, SELFPAY | PROVIDERS: PCP Internal Medicine; Referring Provider Internal Medicine; Visit Provider Registered Nurse Emergency | DX: M51.26 Other intervertebral disc displacement, lumbar region (principal) | CPT/HCPCS: 99212 ==